=== PATIENT | female | born 1985 | race Caucasian/White ===

== ENCOUNTER 2016-05-26 18:50 | Emergency (ER) | payer OTHER ==
[~2016-05-26] VITALS: Ht 170.2 cm; Wt 115.0 kg
[~2016-05-26 18:50] MED LIST: ALBU1AER9 INH; CHOL1TAB42 PO; FLUT0.15; LORA10TA44 PO; NAPR220T40 PO; SYN75 PO
[2016-05-26 18:54] VITALS: TEMP 36.7; Ht 170.2 cm; Wt 115.0 kg
[2016-05-26] MEDS ORDERED: LORAZEPAM 2 MG/ML 1 ML VIAL IV STA (19:20)
--- NOTE | 2016-05-26 19:22 | EMERGENCY ROOM VISIT NOTE ---
History Report prepared by Ryan: Asa Bustamante Under the Supervision of: Dr. Tigre Carnes D.O. First contact with patient: 18:58 Chief Complaint: ANXIETY Stated Complaint: ANXIETY ATTACK History of Present Illness The patient is a 30 year old female who presents to the Emergency Room with complaints of worsening anxiety beginning thirteen hours prior to arrival. She currently rates her discomfort as an 8/10 in severity. The patient associates shortness of breath and chest tightness with today's symptoms. She states she woke up this morning at 0600 with a warm feeling, shortness of breath, and chest tightness. The patient notes her symptoms worsened an hour and a half ago. She states she took 1 mg Ativan at 1400 and 1800 without relief. The patient notes she has a history of anxiety and depression. She states her last anxiety attack was over a year ago, and the symptoms today feel similar to her previous episode. The patient notes her medications have been changed recently. She states she has been in bed the past week due to her depression. She notes she has a history of exercise induced asthma. The patient states her last known menstrual period was April 29 which was normal. She denies suicidal ideation. Source of History: patient Onset: thirteen hours [employer] Position: other (global) Symptom Intensity: 8/10 Quality: other (anxiety) Timing: worsening Associated Symptoms: + SOB, + chest pain (tightness) Review of Systems See HPI for pertinent positives & negatives. A total of 10 systems reviewed and were otherwise negative. Past Medical & Surgical Medical Problems: (1) Anxiety State Nos (2) Asthma, Unspecified (3) Hypothyroidism Nos (4) Reflux Esophagitis Surgical Problems: (1) Sterilization Family History Cancer Diabetes mellitus Heart disease Hypertension Kidney disease Social History Smoking Status: Former Smoker Alcohol Use: occasionally Drug Use: none Marital Status: Housing Status: lives with family Occupation Status: employed Current/Historical Medications Scheduled Azelastine Hcl (Astelin Nasal [place]), 2 SPRAYS NA BID Cholecalciferol (Vitamin D), 10,000 UNITS PO QAM Fluticasone Propionate (Nasal) (Flonase Allergy Relief), 2 SPRAYS NA BID Levothyroxine Sodium (Synthroid), 75 MCG PO QAM Venlafaxine Hcl (Effexor), 75 MG PO BID Scheduled PRN Albuterol (Proair Hfa), 2 PUFFS INH Q4 PRN for Wheezing Lorazepam (Lorazepam), 1 MG PO Q8H PRN for Anxiety Allergies Coded Allergies: Penicillins (Verified Allergy, Intermediate, rash, 05/26/16) Latex1 -Allergic Contact Dermititis (Verified Allergy, Mild, RASH, 05/26/16) Azithromycin (Verified Allergy, Unknown, RASH, 05/26/16) Physical Exam Vital Signs Date Time Temp Pulse Resp B/P Pulse Ox O2 Delivery O2 Flow Rate FiO2 05/26/16 21:38 86 16 124/66 100 05/26/16 21:20 86 16 124/66 100 Room Air 05/26/16 18:54 36.7 103 30 135/83 99 Room Air Physical Exam CONSTITUTIONAL/VITAL SIGNS: Reviewed / noted above. GENERAL: Non-toxic in appearance. INTEGUMENTARY: Warm, dry, and [place]. HEAD: Normocephalic. EYES: without scleral icterus or trauma. ENT/OROPHARYNX: clear and moist. LYMPHADENOPATHY/NECK: Is supple without lymphadenopathy or meningismus. RESPIRATORY: Tachypneic with short, shallow, rapid breaths with some sobbing and crying. CARDIOVASCULAR: Regular rate and rhythm. GI/ABDOMEN: Soft and nontender. No organomegaly or pulsatile mass. No rebound or guarding. Normal bowel sounds. EXTREMITIES: Warm and well perfused. BACK: No CVA tenderness. NEUROLOGICAL: Intact without focal deficits. PSYCHIATRIC: Appears anxious. MUSCULOSKELETAL: Normally developed with good muscle tone. Medical Decision & Procedures ER Provider Diagnostic Interpretation: X ray results and stated below per my interpretation and radiology interpretation. CHEST ONE VIEW PORTABLE HISTORY: Evaluate Fever/Sepsis COMPARISON: Chest 03/16/2015. FINDINGS: The lungs are clear. Cardiac silhouette is normal in size. No pleural effusions. No pneumothorax. IMPRESSION: No acute process. Electronically signed by: Jv De La Cruz M.D. 05/26/2016 8:04 PM Dictated Date/Time: 05/26/2016 8:03 PM Laboratory Results 05/26/16 20:00 Red Blood Count 5.27, Mean Corpuscular Volume 84.6, Mean Corpuscular Hemoglobin 29.6, Mean Corpuscular Hemoglobin Concent 35.0, Mean Platelet Volume 10.2, Neutrophils (%) (Auto) 59.4, Lymphocytes (%) (Auto) 32.1, Monocytes (%) (Auto) 7.0, Eosinophils (%) (Auto) 0.8, Basophils (%) (Auto) 0.5, Neutrophils # (Auto) 6.20, Lymphocytes # (Auto) 3.34, Monocytes # (Auto) 0.73, Eosinophils # (Auto) 0.08, Basophils # (Auto) 0.05 05/26/16 20:00 Test 05/26/16 19:50 05/26/16 20:00 Urine Opiates Screen NEG (NEG) Urine Methadone, Qualitative NEG (NEG) Urine Barbiturates NEG (NEG) Urine Phencyclidine (PCP) Level NEG (NEG) Ur Amphetamine/Methamphetamine NEG (NEG) MDMA (Ecstasy) Screen NEG (NEG) Urine Benzodiazepines Screen NEG (NEG) Urine Cocaine Metabolite NEG (NEG) Urine Marijuana (THC) NEG (NEG) White Blood Count 10.42 K/uL (4.8-10.8) Red Blood Count 5.27 M/uL (4.2-5.4) Hemoglobin 15.6 g/dL (12.0-16.0) Hematocrit 44.6 % (37-47) Mean Corpuscular Volume 84.6 fL (80-100) Mean Corpuscular Hemoglobin 29.6 pg (25-34) Mean Corpuscular Hemoglobin Concent 35.0 g/dl (32-36) Platelet Count 227 K/uL (130-400) Mean Platelet Volume 10.2 fL (7.4-10.4) Neutrophils (%) (Auto) 59.4 % Lymphocytes (%) (Auto) 32.1 % Monocytes (%) (Auto) 7.0 % Eosinophils (%) (Auto) 0.8 % Basophils (%) (Auto) 0.5 % Neutrophils # (Auto) 6.20 K/uL (1.4-6.5) Lymphocytes # (Auto) 3.34 K/uL (1.2-3.4) Monocytes # (Auto) 0.73 K/uL (0.11-0.59) Eosinophils # (Auto) 0.08 K/uL (0-0.5) Basophils # (Auto) 0.05 K/uL (0-0.2) RDW Standard Deviation 38.5 fL (36.4-46.3) RDW Coefficient of Variation 12.6 % (11.5-14.5) Immature Granulocyte % (Auto) 0.2 % Immature Granulocyte # (Auto) 0.02 K/uL (0.00-0.02) Prothrombin Time 10.0 SECONDS (9.0-12.0) Prothromb Time International Ratio 0.9 (0.9-1.1) Activated Partial Thromboplast Time 27.5 SECONDS (21.0-31.0) Partial Thromboplastin Ratio 1.1 D-Dimer 430 ug/L FEU (0-500) Anion Gap 9.0 mmol/L (3-11) Est Creatinine Clear Calc Drug Dose 144.3 ml/min Estimated GFR () 123.7 Estimated GFR (Non- 106.8 BUN/Creatinine Ratio 18.0 (10-20) Calcium Level 9.0 mg/dl (8.5-10.1) Total Bilirubin 0.3 mg/dl (0.2-1) Aspartate Amino Transf (AST/SGOT) 20 U/L (15-37) Alanine Aminotransferase (ALT/SGPT) 39 U/L (12-78) Alkaline Phosphatase 136 U/L (45-117) Total Creatine Kinase 95 U/L (26-192) Creatine Kinase MB 0.6 ng/ml (0.5-3.6) Creatine Kinase MB Ratio 0.6 (0-3.0) Troponin I < 0.015 ng/ml (0-0.045) Total Protein 7.8 gm/dl (6.4-8.2) Albumin 4.3 gm/dl (3.4-5.0) Globulin 3.5 gm/dl (2.5-4.0) Albumin/Globulin Ratio 1.2 (0.9-2) Thyroid Stimulating Hormone (TSH) 4.610 uIu/ml (0.300-4.500) Chemistry Specimen Hemolysis Salicylates Level < 1.7 mg/dl (2.8-20) Acetaminophen Level < 2 ug/ml (10-30) Ethyl Alcohol mg/dL < 3.0 mg/dl (0-3) Laboratory results as stated above per my review. Medications Administered Medications (Trade) Dose Ordered Sig/Elena Route Start Time Stop Time Status Last Admin Dose Admin Lorazepam (Ativan Inj) 2 mg NOW STAT IV 05/26/16 19:20 05/26/16 19:23 DC 05/26/16 20:01 2 MG ECG Indication: SOB/dyspnea Rate (beats per minute): 95 Rhythm: sinus rhythm Findings: RBBB, no ectopy, other (no acute injury) ED Course 1905: Previous medical records were reviewed. The patient was evaluated in room A8. A complete history and physical examination was performed. 1919: Ordered Ativan Inj 2 mg IV. 2129: On reevaluation, the patient is doing well. I discussed the results and findings with the patient. She verbalized agreement of the treatment plan. The patient was discharged home. Medical Decision differential includes toxic ingestions, self-mutilation, suicidal ideation, suicide attempt, depression. This is a 30-year-old female who presents to the ED with a chief complaint of anxiety attack. The patient states that she has been anxious since about 6 AM this morning. She states that she had a hot feeling and felt short of breath and has some chest tightness. The patient states that her symptoms were worse around 5:30 PM. She took an Ativan sublingual around 2 PM and another around 6 PM. She states that it did not seem to help. She is tachypneic on exam and is anxious. Her respiratory rate was 30. She is not hypoxic or febrile. She denies any other significant symptoms. An EKG shows a sinus rhythm at a rate of 95 with a right bundle branch block. CBC is normal. D-dimer and troponin are negative. Complete metabolic panel is normal. A urine tox screen is normal. The patient was given 2 mg of IV Ativan. On reassessment, she is feeling much better. She is felt to be stable for discharge. She denies being homicidal or suicidal. Impression Primary Impression: Anxiety Scribe Attestation The scribe's documentation has been prepared under my direction and personally reviewed by me in its entirety. I confirm that the note above accurately reflects all work, treatment, procedures, and medical decision making performed by me. Departure Information Dispostion Home / Self-Care Referrals Rina Gautam D.O. (PCP) Forms HOME CARE DOCUMENTATION FORM, IMPORTANT VISIT INFORMATION Patient Instructions A Signature Page, Disorder Generalized Anxiety, My [facility] Additional Instructions Follow-up with your doctor for further care and evaluation in 1-2 days. Return to the emergency department for worsening or new symptoms or any concerns. You have been examined and treated today on an emergency basis only. This is not a substitute for, or an effort to provide, complete comprehensive medical care. It is impossible to recognize and treat all injuries or illnesses in a single emergency department visit. It is therefore important that you follow up closely with your doctor. Call as soon as possible for an appointment.
[2016-05-26] MEDS ORDERED: EFF75 PO (19:23)
[2016-05-26] MEDS ORDERED: ASTN (19:23)
[2016-05-26] MEDS ORDERED: ATV1 PO (19:23)
--- NOTE | 2016-05-26 20:05 | DIAGNOSTIC IMAGING REPORT ---
CHEST ONE VIEW PORTABLE HISTORY: Evaluate Fever/Sepsis COMPARISON: Chest 03/16/2015. FINDINGS: The lungs are clear. Cardiac silhouette is normal in size. No pleural effusions. No pneumothorax. IMPRESSION: No acute process. Electronically signed by: Jv De La Cruz M.D. 05/26/2016 8:04 PM Dictated Date/Time: 05/26/2016 8:03 PM
[2016-05-26 20:16] LABS: BASO % 0.5 %; BASO ABS # 0.05 K/uL (0-0.2); COMPLETE YES; EOS % 0.8 %; HEMATOCRIT 44.6 % (37-47); IG% 0.2 %; LYMPH % 32.1 %; LYMPH ABS # 3.34 K/uL (1.2-3.4); MEAN CELL VOLUME 84.6 fL (80-100); MEAN CORPUSCULAR HEMOGLOBIN 29.6 pg (25-34); MEAN PLATELET VOLUME 10.2 fL (7.4-10.4); NEUT % 59.4 %; PLATELET COUNT 227 K/uL (130-400); RED BLOOD COUNT 5.27 M/uL (4.2-5.4); WHITE BLOOD COUNT 10.42 K/uL (4.8-10.8)
[2016-05-26 20:33] LABS: INR 0.9 (0.9-1.1); PARTIAL THROMBOPLASTIN RATIO 1.1
[2016-05-26 20:40] LABS: BENZODIAZEPINE, URINE NEG (NEG); COCAINE,URINE NEG (NEG); PHENCYCLIDINE, URINE NEG (NEG)
[2016-05-26 20:40] LABS: ACETAMINOPHEN < 2 ug/ml (10-30)
[2016-05-26 20:41] LABS: ALT/SGPT 39 U/L (12-78); AST/SGOT 20 U/L (15-37); BLOOD UREA NITROGEN 14 mg/dl (7-18); CARBON DIOXIDE 25 mmol/L (21-32); CHLORIDE 108 mmol/L (98-107); CREATININE 0.76 mg/dl (0.60-1.20); GLUCOSE 78 mg/dl (70-99); POTASSIUM 3.5 mmol/L (3.5-5.1); SODIUM 142 mmol/L (136-145)
[2016-05-26 20:58] LABS: ALB/GLOB RATIO 1.2 (0.9-2); ALKALINE PHOSPHATASE 136 U/L (45-117); CKMB/CK RATIO 0.6 (0-3.0)
[2016-05-26 21:38] VITALS: BP 124/66; PULSE 86; O2SAT 100
== END 2016-05-26 21:39 | disposition home or self-care (01) ==
LOC: C.EDB 18:52 → C.EDA 21:39
DX: F41.9 Anxiety disorder, unspecified (principal); J45.909 Unspecified asthma, uncomplicated; E03.9 Hypothyroidism, unspecified; K21.0 Gastro-esophageal reflux disease with esophagitis; Z80.9 Family history of malignant neoplasm, unspecified; Z83.3 Family history of diabetes mellitus; Z82.49 Family history of ischemic heart disease and other diseases of the circulatory system; Z84.1 Family history of disorders of kidney and ureter; Z87.891 Personal history of nicotine dependence; Z79.899 Other long term (current) drug therapy

== ENCOUNTER 2016-12-04 10:29 | Emergency (ER) | payer OTHER ==
[~2016-12-04] VITALS: Ht 170.2 cm; Wt 130.8 kg
[~2016-12-04 10:29] MED LIST changes: +ASTN; +ATV1 PO; +EFF75 PO; -LORA10TA44 PO; -NAPR220T40 PO
[2016-12-04 10:33] VITALS: TEMP 37; Ht 170.2 cm; Wt 130.8 kg
[2016-12-04] MEDS ORDERED: MELA1TAB5 PO (10:56)
[2016-12-04] MEDS ORDERED: HYDR-3126 PO (10:56)
[2016-12-04] MEDS ORDERED: VNTHFA/IN INH (10:56)
[2016-12-04] MEDS ORDERED: METH1TAB18 PO (10:56)
--- NOTE | 2016-12-04 11:11 | DIAGNOSTIC IMAGING REPORT ---
CHEST ONE VIEW PORTABLE HISTORY: 31 years Female with acute chest pain and shortness of breath COMPARISON: Chest radiograph 05/26/2016 TECHNIQUE: Portable upright AP view of the chest FINDINGS: Cardiac silhouette is within normal limits. No pneumothorax, pleural effusion, focal airspace consolidation or overt pulmonary edema. Patient obesity is noted. Bones are grossly intact. IMPRESSION: No acute cardiopulmonary process. The above report was generated using voice recognition software. It may contain grammatical, syntax or spelling errors. Electronically signed by: Chris Gross M.D. 12/04/2016 11:09 AM Dictated Date/Time: 12/04/2016 11:09 AM
[2016-12-04 11:22] LABS: HEMATOCRIT 44.6 % (37-47); MEAN CELL VOLUME 84.3 fL (80-100); MEAN CORPUSCULAR HEMOGLOBIN 28.7 pg (25-34); MEAN CORPUSCULAR HGB CONC 34.1 g/dl (32-36); MEAN PLATELET VOLUME 9.6 fL (7.4-10.4); PLATELET COUNT 221 K/uL (130-400); RED BLOOD COUNT 5.29 M/uL (4.2-5.4); WHITE BLOOD COUNT 4.77 K/uL (4.8-10.8)
[2016-12-04 11:30] LABS: PARTIAL THROMBOPLASTIN RATIO 1.1; PROTHROMBIN TIME (PATIENT) 10.4 SECONDS (9.0-12.0)
[2016-12-04 11:44] LABS: BUN/CREATININE RATIO 14.1 (10-20); CALCIUM 8.9 mg/dl (8.5-10.1); CREATININE 0.81 mg/dl (0.60-1.20)
[2016-12-04 11:49] LABS: ALB/GLOB RATIO 1.1 (0.9-2); CKMB/CK RATIO 0.8 (0-3.0)
[2016-12-04 12:43] LABS: ALKALINE PHOSPHATASE 108 U/L (45-117); ALT/SGPT 53 U/L (12-78); AST/SGOT 30 U/L (15-37)
[2016-12-04 13:50] VITALS: BP 155/91; O2SAT 98
[2016-12-04 13:52] VITALS: PULSE 98
--- NOTE | 2016-12-04 20:38 | EMERGENCY ROOM VISIT NOTE ---
History First contact with patient: 11:01 Chief Complaint: CHEST PAIN Stated Complaint: HIGH BP/CHEST PRESSURE/LEFT ARM PINCHING Nursing Triage Summary: Pt seen at PCP yesterday, bp was elevated. Seen initially for swelling in ankle. Last night developed left sided chest pain and pain into left arm described as pinching. Tight feeling when taking a deep breath, "like one of my children are sitting on my chest." Seen at [facility] to have bp rechecked, had an EKG done but was not told results. History of Present Illness The patient is a 31 year old female who presents to the Emergency Room with complaints of bilateral lower extremity swelling, elevated blood pressure, left- sided chest pain and left upper extremity pain/pinching sensation. The patient reports that she was seen yesterday afternoon by Dr. Green in the clinic. She was found to have elevated blood pressures and peripheral edema. Patient was instructed to return to the office this morning for repeat blood pressure checks. The patient reports that she was sitting on the couch watching television last night, she developed left-sided chest pressure and left arm extremity pain with a pinching sensation in her forearm. The patient reports that it felt like her child was sitting on her chest. He denied any nausea or diaphoresis. The patient did not notice any pain radiating into the neck. She has seen a chiropractor in the past for her neck as well. She denies any other recent shortness of breath, cough, fevers or chills. When the patient was back to her PCPs office this morning and told them about her chest pain, she was sent to emergency department for further evaluation. The patient believes that her blood pressure was 127/97. An ECG was performed but they did not tell her if it was normal or abnormal. The patient currently rates her discomfort a 5 out of 10. She has not noticed any worsening pain with exertion. She denies any personal history of heart disease, but does report a family history of coronary artery disease with her father having an myocardial infarction at the age of 45. Her father also has a history of pulmonary emboli. The patient denies any history of clotting disorders, DVT or pulmonary emboli. The patient rated her discomfort a 3 out of 10 on my exam. Review of Systems HEENT: Denies dizziness, visual problems, hearing loss, tinnitus. Denies difficulty swallowing or oral lesions. PULMONARY: Denies cough, shortness of breath, sputum production or hemoptysis. CARDIOVASCULAR: See history of present illness, otherwise denies palpitations or dyspnea on exertion. GASTROINTESTINAL: Denies diarrhea, constipation, nausea, vomiting, or abdominal pain. GENITOURINARY: Denies dysuria, frequency, urgency or nocturia. NEUROLOGIC: Denies history of epilepsy, CVA, TIA or chronic headaches. MUSCULOSKELETAL: Denies history of joint tenderness/swelling. SKIN: Denies rashes or lesions. PSYCHIATRIC: History of anxiety. ENDOCRINE: Denies history of diabetes. Reports history of hypothyroidism. Past Medical/Surgical History Medical Problems: (1) Anxiety State Nos (2) Asthma, Unspecified (3) Hypothyroidism Nos (4) Reflux Esophagitis Surgical Problems: (1) Sterilization Family History Cancer Diabetes mellitus Heart disease Hypertension Kidney disease Social History Smoking Status: Former Smoker Alcohol Use: occasionally Drug Use: none Marital Status: Housing Status: lives with family Occupation Status: employed Current/Historical Medications Scheduled Azelastine Hcl (Astelin Nasal [place]), 2 SPRAYS NA BID Fluticasone Propionate (Nasal) (Flonase Allergy Relief), 2 SPRAYS NA BID Hydroxyzine Hcl (Atarax), 50 MG PO TID Levothyroxine Sodium (Synthroid), 75 MCG PO QAM Methylphenidate Hcl (Methylphenidate Hcl Er), 36 MG PO DAILY Scheduled PRN Albuterol Hfa (Ventolin Hfa), 2 PUFFS INH Q6H PRN for Shortness of Breath Melatonin (Kp Melatonin), 1 TAB PO HS PRN for Sleep Physical Exam Vital Signs Date Time Temp Pulse Resp B/P (MAP) Pulse Ox O2 Delivery O2 Flow Rate FiO2 12/04/16 13:52 98 12/04/16 13:50 74 18 155/91 98 Room Air 12/04/16 12:15 77 18 149/95 97 Room Air 12/04/16 11:09 99 Room Air 12/04/16 10:58 84 12/04/16 10:33 37.0 88 16 165/95 100 Room Air Physical Exam CONSTITUTIONAL: Morbidly obese female, alert and oriented X 3 with positive affect. Patient does not appear in any acute distress. HEENT: Normocephalic, atraumatic. Pupils equal, round and reactive. Ears and nares are clear. No scleral icterus or conjunctival injection/pallor. NECK: Full active range of motion without discomfort. No JVD or carotid bruits. RESPIRATORY: Clear to auscultation bilaterally with no wheezing, crackles, rhonchi or stridor. She does not appear dyspneic. CARDIOVASCULAR: Regular rate and rhythm with no murmurs, rubs or gallops. GASTROINTESTINAL: Bowel sounds present in all quadrants. Abdomen is soft and nontender to palpation. MUSCULOSKELETAL: Full range of motion of all joints without discomfort. The patient has no tenderness to palpation over the costochondral joints or anterior chest wall. The patient also has no worsening pain with range of motion of the left shoulder. INTEGUMENTARY: No rash or other significant dermatologic conditions noted. HEMATOLOGIC: No ecchymosis or petechiae noted. NEUROLOGIC: No focal neurologic deficits noted. Medical Decision & Procedures ER Provider Diagnostic Interpretation: My interpretation of an ECG shows a normal sinus rhythm of [address] elevation or other conduction abnormalities. My interpretation of a portable chest x-ray does not show any consolidations, pneumothorax or obvious cardiac prominence. Radiologist report is as follows: CHEST ONE VIEW PORTABLE HISTORY: 31 years Female with acute chest pain and shortness of breath COMPARISON: Chest radiograph 05/26/2016 TECHNIQUE: Portable upright AP view of the chest FINDINGS: Cardiac silhouette is within normal limits. No pneumothorax, pleural effusion, focal airspace consolidation or overt pulmonary edema. Patient obesity is noted. Bones are grossly intact. IMPRESSION: No acute cardiopulmonary process. Laboratory Results 12/04/16 11:00 12/04/16 11:00 Test 12/04/16 11:00 12/04/16 11:07 Red Blood Count 5.29 M/uL (4.2-5.4) Mean Corpuscular Volume 84.3 fL (80-100) Mean Corpuscular Hemoglobin 28.7 pg (25-34) Mean Corpuscular Hemoglobin Concent 34.1 g/dl (32-36) RDW Standard Deviation 39.5 fL (36.4-46.3) RDW Coefficient of Variation 12.9 % (11.5-14.5) Mean Platelet Volume 9.6 fL (7.4-10.4) Prothrombin Time 10.4 SECONDS (9.0-12.0) Prothromb Time International Ratio 1.0 (0.9-1.1) Activated Partial Thromboplast Time 27.5 SECONDS (21.0-31.0) Partial Thromboplastin Ratio 1.1 D-Dimer 490 ug/L FEU (0-500) Anion Gap 5.0 mmol/L (3-11) Est Creatinine Clear Calc Drug Dose 144.5 ml/min Estimated GFR () 113.8 Estimated GFR (Non- 98.1 BUN/Creatinine Ratio 14.1 (10-20) Calcium Level 8.9 mg/dl (8.5-10.1) Total Bilirubin 0.3 mg/dl (0.2-1) Direct Bilirubin < 0.1 mg/dl (0-0.2) Aspartate Amino Transf (AST/SGOT) 30 U/L (15-37) Alanine Aminotransferase (ALT/SGPT) 53 U/L (12-78) Alkaline Phosphatase 108 U/L (45-117) Total Creatine Kinase 78 U/L (26-192) Creatine Kinase MB 0.6 ng/ml (0.5-3.6) Creatine Kinase MB Ratio 0.8 (0-3.0) Pro-B-Type Natriuretic Peptide 40 pg/ml (0-450) Total Protein 7.2 gm/dl (6.4-8.2) Albumin 3.9 gm/dl (3.4-5.0) Globulin 3.5 gm/dl (2.5-4.0) Albumin/Globulin Ratio 1.1 (0.9-2) Lipase 125 U/L (73-393) Thyroid Stimulating Hormone (TSH) 2.870 uIu/ml (0.300-4.500) Bedside Troponin I < 0.030 ng/ml (0-0.045) The above labs were reviewed and were grossly normal. BNP, troponin and d- dimer are normal. TSH is normal. ED Course Patient history and physical exam were performed. Nurse's notes were reviewed. Vital signs were reviewed, showing an elevated blood pressure 165/95 in triage. Another blood pressure recheck approximately 2-1/2 hours later was 149/ 95. IV access was established, and labs were drawn. ECG and portable chest x- ray were normal. Labs were reviewed to show a normal d-dimer, troponin and BNP. Remaining labs were also reviewed. The case was then discussed with Dr. Palmer, who reviewed the patient's office notes and recommended that the patient be started on triamterene/ hydrochlorothiazide. He will ascribe this medication for the patient. His office will also contact the patient for reevaluation tomorrow and cardiology referral with stress test. This information was relayed back to the patient. She was instructed to return to the emergency department for any progressively worsening chest pain, diaphoresis, shortness of breath or other concerning symptoms. The patient was happy with plan of care, voiced understanding of all discharge instructions, and denied any significant discomfort at the time of discharge. The case was also discussed with Dr. Layne, ED attending physician, who agrees with workup and plan of care. Medical Decision Patient presents to the emergency department with complaint of left sided chest pressure and left arm pain. Her workup today is not suggestive of myocardial infarction, pneumonia, pneumothorax or pulmonary embolus. The patient is also euthyroid. She is not anemic. She has no leukocytosis or fever to suggest infection. The patient is hypertensive, and her PCP will be prescribing antihypertensives, and will also secure cardiology reevaluation. At this point I do feel that the patient is safe for outpatient management, with instructions to return for any worsening symptoms. Medication Reconcilliation Current Medication List: was personally reviewed by me Blood Pressure Screening Patient's blood pressure: Elevated blood pressure Blood pressure disposition: Referred to PCP Impression Primary Impression: Left sided chest pain Additional Impression: Hypertension Departure Information Referrals Sarah Sanchez D.O. (PCP) Patient Instructions My [facility] Problem Qualifiers Additional Impression: Hypertension Hypertension type: essential hypertension Qualified Codes: I10 - Essential ( primary) hypertension
== END 2016-12-04 14:20 | disposition home or self-care (01) ==
LOC: C.EDB 10:31 → C.EDC 14:20
DX: R07.9 Chest pain, unspecified (principal); I10 Essential (primary) hypertension; R60.0 Localized edema; F41.9 Anxiety disorder, unspecified; J45.909 Unspecified asthma, uncomplicated; E03.9 Hypothyroidism, unspecified; K21.0 Gastro-esophageal reflux disease with esophagitis; Z87.891 Personal history of nicotine dependence; Z83.3 Family history of diabetes mellitus; Z83.2 Family history of diseases of the blood and blood-forming organs and certain disorders involving the immune mechanism; Z82.49 Family history of ischemic heart disease and other diseases of the circulatory system

== ENCOUNTER 2022-06-21 23:22 | Inpatient (IN) ==
[2022-06-21] MEDS ORDERED: SODIUM CHLORIDE 0.9% 1000ML 500 ML IV ONE (23:39)
[2022-06-21] MEDS ORDERED: MoRPHine SULFATE 4 MG/ML 1 ML CARP\\VIAL IV STA (23:40)
[2022-06-21] MEDS ORDERED: ONDANSETRON INJ 2 MG/ML 2 ML VIAL IV STA (23:40)
--- NOTE | 2022-06-21 23:41 | Emergency Department Note ---
History of Present Illness General Chief complaint: Back Injury/Pain Stated complaint: LOWER BACK PAIN Time Seen by Provider: 06/21/22 23:30 History of Present Illness Maximum Pain Intensity: 9 This is a 36-year-old female with a history of gastric bypass the presents to the emergency department via private vehicle with complaints of "low back pain". The patient notes that she has been experiencing right flank pain that radiates from her right side of the back to the abdomen since around 2021. Over the past month now she has been experiencing ongoing discomfort. She has been to see her PCP for this and has also had an ultrasound. She notes that it confirmed there is a kidney stone in the right kidney. She denies any fevers or chills. She does feel nauseated at times. No vomiting. No dysuria. She denies any visible blood in the urine. Patient notes that the pain has been intermittent. Current pain 9/10. Home Medications Medication Instructions Recorded Confirmed Type azelastine 137 mcg (0.1 %) nasal 1 spray intranasal BID PRN Nasal 04/30/21 06/22/22 History spray aerosol Congestion brexpiprazole 1 mg tablet (Rexulti) 1 mg PO HS 04/30/21 06/22/22 History fluticasone propionate 50 1 spray intranasal BID PRN 04/30/21 06/22/22 History mcg/actuation nasal allergies spray,suspension hydroxyzine HCl 50 mg tablet 50 mg PO HS 04/30/21 06/22/22 History levothyroxine 112 mcg capsule 112 mcg PO QAM 04/30/21 06/22/22 History multivitamin 1 tab PO DAILY 04/30/21 06/22/22 History topiramate 50 mg tablet 50 mg PO HS 04/30/21 06/22/22 History vortioxetine 20 mg tablet 20 mg PO HS 04/30/21 06/22/22 History (Trintellix) bupropion HCl 75 mg tablet 150 mg PO BID 06/22/22 06/22/22 History calcium cit 250 mg-mag 40 mg-D3 2 tab PO TID 06/22/22 06/22/22 History 125 unit-zinc 3.75 mg-molecular spectroscopist-salvador tablet (Calcium Citrate Plus) cholecalciferol (vitamin D3) 50 50 mcg PO DAILY 06/22/22 06/22/22 History mcg (2,000 unit) tablet (Vitamin D3) lisdexamfetamine 60 mg capsule 60 mg PO QAM 06/22/22 06/22/22 History (Vyvanse) omeprazole 20 mg capsule,delayed 20 mg PO QAM 06/22/22 06/22/22 History release pediatric [id number] 1 tab PO BID 06/22/22 06/22/22 History tamsulosin 0.4 mg capsule 0.4 mg PO QAM 06/22/22 06/22/22 History vitamin A 2,400 mcg capsule 2,400 mcg PO DAILY 06/22/22 06/22/22 History Allergies Allergy/AdvReac Type Severity Reaction Status Date / Time azithromycin Allergy Mild Rash Verified 06/22/22 02:34 latex Allergy Mild RASH Verified 06/22/22 02:34 nickel Allergy Mild RASH/SKIN Verified 06/22/22 02:34 IRRITATION Penicillins Allergy Mild rash Verified 06/22/22 02:34 Past Med/Surg History Medical History ADD (attention deficit disorder) Anxiety and depression Exercise-induced asthma HAS NOT USED INHALER FOR <1 YEAR GERD (gastroesophageal reflux disease) "SEVERE" Hx of migraines Hypertension Hypothyroidism Temporomandibular joint disorder Surgical History History of anesthesia reaction TROUBLE STAYING AWAKE WITH WISDOM TEETH REMOVAL History of bilateral tubal ligation History of esophagogastroduodenoscopy (EGD) History of tonsillectomy and adenoidectomy [place] teeth removed Family History Father Family history of diabetes mellitus Other No family history of adverse response to anesthesia Social History Smoking Status: Never smoker Second Hand Exposure: No; Do You Dip or Chew Tobacco: No; Hx Alcohol Use: Yes Alcohol type: other Hx Substance Use: No Preferred Language: Sammarinese Communication Ability: Effective Fine Arts Teacher Required: No Beliefs That Will Affect Care: None Current Living Situation: Spouse Current Living Situation Comment: AND 2 CHILDREN Feels Safe at Home: Yes Safety Concerns: Feels Safe At This Time Assistive Devices: Glasses Review of Systems A total of 10 systems reviewed and were otherwise negative Physical Exam Vital Signs Vital Signs - 24 hr 06/21/22 23:25 06/22/22 00:19 06/22/22 02:09 Temperature 36.1 C L Temperature Source Temporal Artery Scan Pulse Rate 81 Pulse Rate [Finger] 58 L 66 Respiratory Rate 16 18 18 Respiratory Effort / Characteristics Non-Labored Spontaneous Non-Labored Spontaneous Respiratory Depth Normal Normal Blood Pressure 146/94 H Blood Pressure [Right Arm] 152/91 H 156/94 H Blood Pressure Mean 111 Blood Pressure Mean [Right Arm] 111 114 Blood Pressure Position [Right Arm] Sitting Sitting Pulse Oximetry 98 97 98 Oxygen Delivery Method Room Air Room Air Room Air Sepsis Recent Fever Within 48 Hours No Sepsis New/Unexplained Change in Mental Status No Sepsis Action Taken by Nursing No Action Required VITAL SIGNS - Vital signs and nursing notes were reviewed. Mildly hypertensive, otherwise stable. GENERAL -36-year-old female appearing her stated age who is in no acute distress. Communicates well with provider and answers questions appropriately. SKIN - Without rashes. No meningeal or petechial rash. HEAD - NC/AT. EYES - Sclera anicteric. LUNGS - Chest wall symmetric without accessory muscle use, intercostals retractions, or central cyanosis. Normal vesicular breath sounds CTA B/L. No wheezes, rales, or rhonchi appreciated. CARDIAC - RRR with S1/S2. No murmur, rubs, or gallops appreciated. ABDOMEN - Abdominal contour normal without pulsations or visible masses. BS normoactive all four quadrants. No tenderness, palpable masses, hepatosplenomegaly, or ascites noted. MUSCULOSKELETALthere is reproducible tenderness to palpation overlying the right flank region. EXTREMITIES - No clubbing or peripheral cyanosis. PSYCH - A&O, and cooperates fully with examiner. Pt is very pleasant and i nteracts well with examiner. Course Administered Medications Bupropion HCl (Bupropion Hcl 75 Mg Tablet) 150 mg PO BID NEDRA Stop: 07/22/22 08:59 Last Admin: 06/22/22 08:06 Dose: Not Given Documented By: ARETHA Hydromorphone HCl (Hydromorphone Inj 0.5 Mg/0.5 Ml Syr) 0.5 mg IV Q3H PRN PRN Reason: Pain Stop: 07/06/22 03:55 Last Admin: 06/22/22 11:11 Dose: 0.5 mg Documented By: Admin: 06/22/22 07:33 Dose: 0.5 mg Documented By: Admin: 06/22/22 04:24 Dose: 0.5 mg Documented By: MICHAEL Sodium Chloride (Nss 1000ml) 1,000 mls @ 80 mls/hr IV .[id number] [facility] Stop: 06/23/22 09:44 Last Admin: 06/22/22 10:07 Dose: 80 mls/hr Documented By: ARETHA Levothyroxine Sodium (Levothyroxine Sodium 112 Mcg Tablet) 112 mcg PO DAILYBB NEDRA Stop: 07/22/22 06:29 Last Admin: 06/22/22 06:29 Dose: 112 mcg Documented By: MICHAEL Miscellaneous (Brexpiprazole [Rexulti] - Order Awaiting Action) 1 each N/A QS [facility] Stop: 07/22/22 07:59 Last Admin: 06/22/22 15:13 Dose: Not Given Documented By: Admin: 06/22/22 08:05 Dose: Not Given Documented By: ARETHA Liuaneous (Lisdexamfetamine [Vyvanse] 60 Mg - Order Awaiting Action) 1 each N/A [facility] Stop: 07/22/22 07:59 Last Admin: 06/22/22 15:13 Dose: Not Given Documented By: Admin: 06/22/22 08:05 Dose: Not Given Documented By: ARETHA Mariecellaneous (Vortioxetine [Trintellix] 20 Mg - Order Awaiting Action) 1 each N/A [facility] Stop: 07/22/22 07:59 Last Admin: 06/22/22 15:13 Dose: Not Given Documented By: Admin: 06/22/22 08:06 Dose: Not Given Documented By: ARETHA Multivitamins/Folic Acid/Vitamin C (Multivitamin Chewable Tab) [facility] [place] Stop: 07/22/22 08:59 Last Admin: 06/22/22 08:06 Dose: Not Given Documented By: ARETHA Pantoprazole Sodium (Pantoprazole 40 Mg Tab) 40 mg PO QAM [facility] Stop: 07/22/22 08:59 Last Admin: 06/22/22 08:06 Dose: Not Given Documented By: ARETHA Tamsulosin HCl (Tamsulosin Hcl 0.4 Mg Cap) 0.4 mg PO QAM [facility] Stop: 07/22/22 08:59 Last Admin: 06/22/22 08:06 Dose: Not Given Documented By: ARETHA Discontinued Medications Diatrizoate Meglumine (Diatrizoate Meglumine 30% 100ml Vial) 100 ml INSTIL ONCE ONE Stop: 06/22/22 12:51 Last Admin: 06/22/22 12:58 Dose: 5 ml Documented By: [id number] Sodium Chloride (Nss 1000ml) 500 mls @ 500 mls/hr IV .Q1H ONE Stop: 06/22/22 00:38 Last Infusion: 06/22/22 03:31 Dose: 0 mls/hr Documented By: Admin: 06/21/22 23:47 Dose: 500 mls/hr Documented By: NGUYEN Ceftriaxone Sodium (Rocephin) 2,000 mg in 70 mls @ 140 mls/hr IV NOW STA Stop: 06/22/22 02:25 Last Infusion: 06/22/22 02:45 Dose: 0 mls/hr Documented By: Admin: 06/22/22 02:02 Dose: 140 mls/hr Documented By: NGUYEN Ketorolac Tromethamine (Ketorolac 30 Mg/Ml Vial) Confirm Administered Dose 60 mg .ROUTE .STK-MED ONE Stop: 06/22/22 13:09 Last Admin: 06/22/22 13:50 Dose: Not Given Documented By: ARETHA Morphine Sulfate (Morphine Sulfate 4 Mg/Ml 1 Ml Carp\\Vial) 4 mg IV NOW STA Stop: 06/21/22 23:41 Last Admin: 06/21/22 23:47 Dose: 4 mg Documented By: NGUYEN Morphine Sulfate (Morphine Sulfate 4 Mg/Ml 1 Ml Carp\\Vial) 4 mg IV NOW STA Stop: 06/22/22 01:57 Last Admin: 06/22/22 02:02 Dose: 4 mg Documented By: NGUYEN Ondansetron HCl (Ondansetron Inj 2 Mg/Ml 2 Ml Vial) 4 mg IV NOW STA Stop: 06/21/22 23:41 Last Admin: 06/21/22 23:47 Dose: 4 mg Documented By: NGUYEN Medical Decision Making Laboratory Data 06/21/22 23:45 06/21/22 23:45 Lab Results 06/21/22 06/21/2206/21/23 Range/Units 23:40 23:40 23:45 WBC 8.94 (4.8-10.8) K/ul RBC 4.93 (4.20-5.40) M/uL Hgb 14.5 (12.0-16.0) g/dl Hct 42.3 (37.0-47.0) % MCV 85.8 (80.0-100.0) fL MCH 29.4 (25.0-34.0) pg MCHC 34.3 (32.0-36.0) g/dL RDW Std Deviation 38.8 (36.4-46.3) fL RDW Coeff of Bebe 12.4 (11.5-14.5) % Plt Count 293 (130-400) K/uL MPV 10.2 (9.4-12.4) fL Immature Gran % (Auto) 0.1 % Neut % (Auto) 59.9 % Lymph % (Auto) 31.8 % Tucker % (Auto) 6.7 % Eos % (Auto) 1.3 % Baso % (Auto) 0.2 % Neut # (Auto) 5.35 (1.40-6.50) K/uL Lymph # (Auto) 2.84 (1.2-3.4) K/uL Tucker # (Auto) 0.60 H (0.11-0.59) K/uL Eos # (Auto) 0.12 (0-0.50) K/uL Baso # (Auto) 0.02 (0-0.2) K/uL Immature Gran # (Auto) 0.01 (0.01-0.20) K/uL Sodium (136-145) mmol/L Potassium (3.5-5.1) mmol/L Chloride (98-107) mmol/L Carbon Dioxide (21-32) mmol/L Anion Gap (3-11) BUN (6-23) mg/dl Creatinine (0.6-1.2) mg/dl Est Cr Clr Drug Dosing ml/min Est GFR ( Amer) ml/min Est GFR (Non-Af Amer) ml/min BUN/Creatinine Ratio (10-20) Glucose (70-99(Fasting)) mg/dl Calcium (8.5-10.1) mg/dl Total Bilirubin (0.2-1.0) mg/dl AST (13-39) U/L ALT (7-52) U/L Alkaline Phosphatase (34-104) U/L Total Protein (6.0-8.3) gm/dl Albumin (3.4-5.0) gm/dl Globulin (2.5-4.0) gm/dl Albumin/Globulin Ratio (0.9-2) Urine Color Dark Yellow Urine Appearance Turbid A (Clear) Urine pH 5.5 (4.5-7.5) Ur Specific [place] 1.027 (1.000-1.030) Urine Protein 3+ H (Negative) Urine Glucose (UA) Negative (Negative) Urine Ketones 1+ H (Negative) Urine Blood 3+ H (Negative) Urine Nitrite Negative (Negative) Urine Bilirubin 1+ H (Negative) Urine Urobilinogen Negative (Negative) Ur Leukocyte Esterase 2+ H (Negative) Urine WBC (Auto) >30 H (0-5) /hpf Urine RBC (Auto) >30 H (0-4) /hpf U Hyaline Cast (Auto) 0 (0-5) /lpf U Epithel Cells (Auto) >30 H (0-5) /lpf Urine Bacteria (Auto) 2+ H (Negative) Urine Crystals Not Reportable Calcium Oxalate Crystal Present A (None Prsent) Urine Mucus Present A (None Prsent) Urine Yeast Not Reportable POC Ur Test NEG (NEG) SARS-CoV-2, RNA, NAAT (NEGATIVE) 06/21/22 06/22/22 Range/Units 23:45 01:42 WBC (4.8-10.8) K/ul RBC (4.20-5.40) M/uL Hgb (12.0-16.0) g/dl Hct (37.0-47.0) % MCV (80.0-100.0) fL MCH (25.0-34.0) pg MCHC (32.0-36.0) g/dL RDW Std Deviation (36.4-46.3) fL RDW Coeff of Bebe (11.5-14.5) % Plt Count (130-400) K/uL MPV (9.4-12.4) fL Immature Gran % (Auto) % Neut % (Auto) % Lymph % (Auto) % Tucker % (Auto) % Eos % (Auto) % Baso % (Auto) % Neut # (Auto) (1.40-6.50) K/uL Lymph # (Auto) (1.2-3.4) K/uL Tucker # (Auto) (0.11-0.59) K/uL Eos # (Auto) (0-0.50) K/uL Baso # (Auto) (0-0.2) K/uL Immature Gran # (Auto) (0.01-0.20) K/uL Sodium 137 (136-145) mmol/L Potassium 4.0 (3.5-5.1) mmol/L Chloride 107 (98-107) mmol/L Carbon Dioxide 24 (21-32) mmol/L Anion Gap 6 (3-11) BUN 16 (6-23) mg/dl Creatinine 0.73 (0.6-1.2) mg/dl Est Cr Clr Drug Dosing 131.5 ml/min Est GFR ( Amer) 124.5 ml/min Est GFR (Non-Af Amer) 107.5 ml/min BUN/Creatinine Ratio 21.9 H (10-20) Glucose 82 (70-99(Fasting)) mg/dl Calcium 9.5 (8.5-10.1) mg/dl Total Bilirubin 0.6 (0.2-1.0) mg/dl AST 21 (13-39) U/L ALT 38 (7-52) U/L Alkaline Phosphatase 159 H (34-104) U/L Total Protein 6.8 (6.0-8.3) gm/dl Albumin 4.5 (3.4-5.0) gm/dl Globulin 2.3 L (2.5-4.0) gm/dl Albumin/Globulin Ratio 2.0 (0.9-2) Urine Color Urine Appearance (Clear) Urine pH (4.5-7.5) Ur Specific [place] (1.000-1.030) Urine Protein (Negative) Urine Glucose (UA) (Negative) Urine Ketones (Negative) Urine Blood (Negative) Urine Nitrite (Negative) Urine Bilirubin (Negative) Urine Urobilinogen (Negative) Ur Leukocyte Esterase (Negative) Urine WBC (Auto) (0-5) /hpf Urine RBC (Auto) (0-4) /hpf U Hyaline Cast (Auto) (0-5) /lpf U Epithel Cells (Auto) (0-5) /lpf Urine Bacteria (Auto) (Negative) Urine Crystals Calcium Oxalate Crystal (None Prsent) Urine Mucus (None Prsent) Urine Yeast POC Ur Test (NEG) SARS-CoV-2, RNA, NAAT NEGATIVE (NEGATIVE) Imaging Data Radiologist's Impression: Abdomen/Pelvis CT 06/21/22 23:39 CT SCAN OF THE ABDOMEN AND PELVIS WITHOUT IV CONTRAST CLINICAL HISTORY: Right flank pain. COMPARISON STUDY: Abdominal CT dated 03/04/2011. TECHNIQUE: CT scan of the abdomen and pelvis is performed from the lung bases to the proximal femora. Images are reviewed in the axial, sagittal, and coronal planes. IV contrast was not administered for this examination. A dose lowering technique was utilized adhering to the principles of ALARA. CT DOSE: 1701.87 mGy.cm FINDINGS: Lung bases: The heart is normal in size and without pericardial effusion. The lung bases are clear. Liver: The unenhanced liver is normal in size, contour, and attenuation. There is no intrahepatic biliary ductal dilatation. Gallbladder: Unremarkable. Spleen: Normal in size and attenuation. Pancreas: Unremarkable. Adrenal glands: Unremarkable. Kidneys: The unenhanced kidneys are normal in size and without hydronephrosis. There is focal cerebral collecting system with a 1.8 cm stone in the right renal pelvis and mild surrounding infiltration. A 6 mm nonobstructing calculus is seen in the left lower pole. No ureteral stone is identified. There is no evidence of contour deforming renal mass lesion. Abdominal vasculature: The abdominal aorta is normal in course and caliber. Stomach and bowel: There is a small hiatal hernia. Postsurgical changes consistent with a Fabricio-en-Y gastric bypass procedure. There is no bowel obstruction. Mild/moderate fecal retention is seen throughout the colon. The appendix is well-visualized and normal. Peritoneum: There is no intraperitoneal free air or abdominal ascites. Lymphadenopathy: None. Pelvic viscera: The bladder is decompressed and grossly unremarkable. The uterus and adnexa are normal as visualized noting bilateral ovarian follicles. Postsurgical change is suggested involving the fallopian tubes. Skeletal structures: No lytic or blastic lesions are seen. IMPRESSION: 1. The kidneys are normal in size and without hydronephrosis. 2. There is fullness of the right renal collecting system with a 1.8 cm calculus in the right renal pelvis and mild surrounding infiltration. Correlate with clinical findings and urinalysis. 3. A small left calculus is also seen in the left lower pole. 4. There is no ureteral stone. 5. The patient is status post Fabricio-en-Y gastric bypass procedure. No bowel obstruction is seen. 6. Additional findings as above. ACT 112: Negative or not required by law. Electronically signed by: Juan M Palomino M.D. 06/22/2022 6:[address] ABDOMEN & PELVIS Without Contrast: Comparison: 03/04/2011 1.4 cm stone within the right renal pelvis with mild hydronephrosis and surround ing peripelvic fat stranding. 4 mm nonobstructing stone within the left kidney. Normal ureters. No bladder stones. Normal appendix. Fabricio-en-Y gastric bypass. Radiologist: Izabella Restrepo MD Study ready at 00:05 and initial results transmitted at 01:15 MDM Narrative Patient was seen and evaluated as above in room A12. Review was performed of triage nursing notes and vital signs. After obtaining a thorough history and physical examination the above work up was performed. Patient presents to us today for evaluation of right flank pain. She clinically appears well and nontoxic. She does note recent confirmation of a stone to the right kidney via ultrasound. Options of care were discussed with the patient. IV access was established. Labs were drawn. She was medicated with IV morphine for pain, IV Zofran for nausea, IV fluids. Benefit versus risk of CT imaging discussed with the patient and we through shared decision making elected to proceed with CT imaging of the abdomen/pelvis without contrast. Radiology report is as above. I did independently review the images. Patient has a rather large 1.4 cm stone within the right renal pelvis with mild hydronephrosis and surrounding peripelvic fat stranding. Labs reveal no leukocytosis or concerning anemia. No emergent metabolic disturbance. Urinalysis although does have evidence of contamination noting amount of epithelial cells is concerning for potential developing UTI. In the setting of a likely obstructing stone now with ongoing and worsening right flank pain IV antibiotics was added. Benefit versus risk of ceftriaxone discussed with the patient. Although she notes allergy to penicillin she is amenable to trying ceftriaxone. This was provided without any issue. No reaction noted. While here in the ED she did respond well to IV analgesia. At this time I do believe that further evaluation and management in the inpatient setting is warranted. Case discussed with hospitalist service. Please refer to further documentation regarding her stay. Noting patients good clinical appearance without fever or evidence of systemic infection I do believe that the patient is stable to await further evaluation by the inpatient service/urology during admission rather than having emergent procedure while in the ED. Case was discussed with the attending physician. In the evaluation and treatment of this patient the following differential diagnoses were entertained: UTI, pyelonephritis, obstructing stone, renal failure, among others Impression & Plan Right flank pain, Renal calculus, Hydronephrosis of right kidney Discharge Plan Visit Data Chief Complaint: Back Injury/Pain Stated Complaint: LOWER BACK PAIN ED Provider: Melissa Collier ED Midlevel Provider: Danny Suero Discharge Problem: Right flank pain, Renal calculus, Hydronephrosis of right kidney Patient Disposition: Admitted As Inpatient Discharge Instructions Interventions: ED Discharge Assessment Last Done: 06/22/22 03:41
[2022-06-21 23:56] LABS: Basophils # (auto) 0.02 K/uL (0-0.2); Basophils % (auto) 0.2 %; Eosinophils # (auto) 0.12 K/uL (0-0.50); Eosinophils % (auto) 1.3 %; Hematocrit (blood only) 42.3 % (37.0-47.0); Hemoglobin 14.5 g/dl (12.0-16.0); Immature Granulocytes # (auto) 0.01 K/uL (0.01-0.20); Immature Granulocytes % (auto) 0.1 %; Lymphocytes # (auto) 2.84 K/uL (1.2-3.4); Lymphocytes % (auto) 31.8 %; Mean Corpuscular Hemoglobin 29.4 pg (25.0-34.0); Mean Corpuscular Hgb Conc 34.3 g/dL (32.0-36.0); Mean Corpuscular Volume 85.8 fL (80.0-100.0); Mean Platelet Volume 10.2 fL (9.4-12.4); Monocytes % (auto) 6.7 %; Neutrophils # (auto) 5.35 K/uL (1.40-6.50); Neutrophils % (auto) 59.9 %; Platelet Count 293 K/uL (130-400); RDW Coefficient of Variation 12.4 % (11.5-14.5); RDW Standard Deviation 38.8 fL (36.4-46.3); Red Blood Count 4.93 M/uL (4.20-5.40); White Blood Count 8.94 K/ul (4.8-10.8)
[2022-06-22 00:03] LABS: Appearance Urine Turbid (Clear); Bacteria Urine Automated 2+ (Negative); Blood Urine 3+ (Negative); Color Urine Dark Yellow; Epithelial Cell Urine Auto >30 /lpf (0-5); Glucose Urine UA Negative (Negative); Ketones Urine 1+ (Negative); Leukocyte Esterase Urine 2+ (Negative); Nitrite Urine Negative (Negative); Protein Urine 3+ (Negative); Specific Gravity Urine 1.027 (1.000-1.030); Urobilinogen Urine Negative (Negative); WBC Urine Automated >30 /hpf (0-5); pH Urine 5.5 (4.5-7.5)
[2022-06-22 00:17] LABS: Bilirubin Urine 1+ (Negative)
[2022-06-22 00:17] LABS: Albumin Level 4.5 gm/dl (3.4-5.0); BUN Creatinine Ratio 21.9 (10-20); Bilirubin,Total 0.6 mg/dl (0.2-1.0); Calcium 9.5 mg/dl (8.5-10.1); Creatinine Clr Calc Pharmacy 131.5 ml/min; Est GFR (African American) 124.5 ml/min; Est GFR (Non-African American) 107.5 ml/min; Globulin 2.3 gm/dl (2.5-4.0); Total Protein 6.8 gm/dl (6.0-8.3)
[2022-06-22 01:25] LABS: Calcium Oxalate Crystals Urine Present (None Prsent); Cast Urine Automated 0 /lpf (0-5); Mucus Urine Present (None Prsent); RBC Urine Automated >30 /hpf (0-4)
[2022-06-22] MEDS ORDERED: cefTRIAXone SODIUM 2,000 MG/70 ML BAG IV STA (01:56)
[2022-06-22] MEDS ORDERED: MoRPHine SULFATE 4 MG/ML 1 ML CARP\\VIAL IV STA (01:56)
[2022-06-22] MEDS ORDERED: ONDANSETRON INJ 2 MG/ML 2 ML VIAL IV PRN ×2 (03:56→12:30)
[2022-06-22] MEDS ORDERED: FLUTICASONE PROPIONATE NA SPR 16 GM BTL PRN (03:56)
[2022-06-22] MEDS ORDERED: AZELASTINE HCL 0.1% NASAL 200 SPRAYS/27,400 MCG BTL PRN (03:56)
[2022-06-22] MEDS ORDERED: POLYETHYLENE (MIRALAX) 17 GM PACK PO PRN (03:56)
[2022-06-22] MEDS: HYDROmorphone INJ 0.5 MG/0.5 ML SYR IV PRN ×5 (04:24→23:36)
--- NOTE | 2022-06-22 05:17 | Urology Consultation ---
Date of Consultation June 22, 2022 Assessment & Plan (1) Renal calculus: The patient has been admitted on the hospitalist service. We recommend proceeding as follows: Provide analgesics Provide antiemetics Provide Flomax for expulsive therapy Provide IV fluid for hydration Due to concern for urinary tract infection patient has been placed on Rocephin. This antibiotic should continue until culture results are available at which time antibiotics can be further tailored Would recommend keeping the patient n.p.o. Should be reevaluated by urology attending this morning to determine if cystoscopy with possible stent placement will be performed. Not feel she requires an urgent procedure at this time as patient is normotensive without tachycardia. She also does not have fever or leukocytosis and her renal function remains normal. Supervising Physician Co-Signing Physician Notes Discussed patient with JAABRI. Agree with plan. Due to poorly controlled pain, proceed to OR for cystoscopy, right retrograde pyelogram right ureteral stent placement. Risk and benefits discussed and consent obtained. Patient marked. History of Present Illness Reason for Consultation: Renal colic Attending Physician: Kanu Serrano MD History of Present Illness This is a 36-year-old female who has been having right-sided renal colic since April 2022. Patient says that she has been managing the pain with analgesics prescribed by her family physician. The patient notes over the past 24 to 48 hours she has had markedly worse right-sided flank pain that radiates to the front of her abdomen which has not been alleviated by medications that she was prescribed as an outpatient. She did not have any nausea or vomiting and she also denies any fevers, shakes, or chills. She denies any dysuria or hematuria. She notes that she has never had a kidney stone in the past. Since arrival to the hospital the patient has had labs and imaging which independent reviewed. A CT scan of the abdomen pelvis showed a 1.4 cm stone in the right renal pelvis resulting in hydronephrosis. There is peripelvic fat stranding noted. She is also noted to have a nonobstructing 4 mm stone within the left kidney. Labs include a CBC her white blood cell count, hemoglobin, hematocrit, and platelet count are all normal. Chemistry profile showed sodium, potassium, BUN, and creatinine were normal. Urinalysis showed turbid urine which was negative for nitrites but positive for leukocyte Estrace and had greater than 30 white blood cells per high-power field. There is also 2+ bacteria on the study. Urine test was negative. A COVID test was negative. At the time of my interview the patient was resting comfortably in bed and she was in no distress. Allergies Allergy/AdvReac Type Severity Reaction Status Date / Time azithromycin Allergy Mild Rash Verified 06/22/22 02:34 latex Allergy Mild RASH Verified 06/22/22 02:34 nickel Allergy Mild RASH/SKIN Verified 06/22/22 02:34 IRRITATION Penicillins Allergy Mild rash Verified 06/22/22 02:34 Home Medications Medication Instructions Recorded Confirmed Type azelastine 137 mcg (0.1 %) nasal 1 spray intranasal BID PRN Nasal 04/30/21 06/22/22 History spray aerosol Congestion brexpiprazole 1 mg tablet (Rexulti) 1 mg PO HS 04/30/21 06/22/22 History fluticasone propionate 50 1 spray intranasal BID PRN 04/30/21 06/22/22 History mcg/actuation nasal allergies spray,suspension hydroxyzine HCl 50 mg tablet 50 mg PO HS 04/30/21 06/22/22 History levothyroxine 112 mcg capsule 112 mcg PO QAM 04/30/21 06/22/22 History multivitamin 1 tab PO DAILY 04/30/21 06/22/22 History topiramate 50 mg tablet 50 mg PO HS 04/30/21 06/22/22 History vortioxetine 20 mg tablet 20 mg PO HS 04/30/21 06/22/22 History (Trintellix) bupropion HCl 75 mg tablet 150 mg PO BID 06/22/22 06/22/22 History calcium cit 250 mg-mag 40 mg-D3 2 tab PO TID 06/22/22 06/22/22 History 125 unit-zinc 3.75 mg-copy chief-salvador tablet (Calcium Citrate Plus) cholecalciferol (vitamin D3) 50 50 mcg PO DAILY 06/22/22 06/22/22 History mcg (2,000 unit) tablet (Vitamin D3) lisdexamfetamine 60 mg capsule 60 mg PO QAM 06/22/22 06/22/22 History (Vyvanse) omeprazole 20 mg capsule,delayed 20 mg PO QAM 06/22/22 06/22/22 History release pediatric zubzqiod-gfan-jxk 1 tab PO BID 06/22/22 06/22/22 History tamsulosin 0.4 mg capsule 0.4 mg PO QAM 06/22/22 06/22/22 History vitamin A 2,400 mcg capsule 2,400 mcg PO DAILY 06/22/22 06/22/22 History Patient History Medical History ADD (attention deficit disorder) Anxiety and depression Exercise-induced asthma HAS NOT USED INHALER FOR <1 YEAR GERD (gastroesophageal reflux disease) "SEVERE" Hx of migraines Hypertension Hypothyroidism Temporomandibular joint disorder Surgical History History of anesthesia reaction TROUBLE STAYING AWAKE WITH WISDOM TEETH REMOVAL History of bilateral tubal ligation History of esophagogastroduodenoscopy (EGD) History of tonsillectomy and adenoidectomy [place] teeth removed Family History Father Family history of diabetes mellitus Other No family history of adverse response to anesthesia Social History Smoking Status: Never smoker Second Hand Exposure: No; Do You Dip or Chew Tobacco: No; Hx Alcohol Use: Yes Alcohol type: other Hx Substance Use: No Preferred Language: [place]i Communication Ability: Effective Care Transition Manager Required: No Beliefs That Will Affect Care: None Current Living Situation: Spouse Current Living Situation Comment: AND 2 CHILDREN Feels Safe at Home: Yes Safety Concerns: Feels Safe At This Time Assistive Devices: Glasses Review of Systems Constitutional: no fever and no chills Eyes: no eye pain Ear, Nose, Mouth, Throat: no ear pain Respiratory: no cough and no dyspnea Cardiovascular: no chest pain Gastrointestinal: + abdominal pain (Radiating from right flank); no nausea and no vomiting Genitourinary: as per Subjective / HPI Musculoskeletal: + back pain (Right flank) Integumentary: no rash Neurologic: no localized weakness Physical Exam Constitutional: WD/WN, vitals as above Eyes: no conjunctival abnormality ENMT: Ears: no hearing impairment and no external ear abnormality Mouth: no oropharynx abnormality Neck: trachea midline Respiratory: normal respiratory effort; no respiratory distress and no labored breathing Cardiovascular: Rate/Rhythm: regular rate and regular rhythm Gastrointestinal (Abdomen): Abdomen is soft and nonrigid. There is no rebound tenderness or guarding but patient did have some tenderness noted in the right hypogastric area with palpation Musculoskeletal: No calf tenderness Skin: no rashes Neurologic: moves all extremities Psychiatric: A+Ox3, euthymic affect Genitourinary: + CVA tenderness (Noted on right side with percussion) Results & Data ([facility]) Vital Signs (Past 12 Hours) Vital Signs Temp Pulse Pulse Resp BP BP Pulse Ox 06/22/22 04:33 06/22/22 04:33 36.5 C 71 20 135/90 97 06/22/22 04:17 36.5 C 71 20 135/90 98 06/22/22 02:09 66 18 156/94 H 98 06/22/22 00:19 58 L 18 152/91 H 97 06/21/22 23:25 36.1 C L 81 16 146/94 H 98 O2 Del Method 06/22/22 04:33 Room Air 06/22/22 04:33 Room Air 06/22/22 04:17 Room Air 06/22/22 02:09 Room Air 06/22/22 00:19 Room Air 06/21/22 23:25 Room Air PG Care Time/CCT Total # of Minutes Spent Total Time Spent with Patient: Total time spent is greater than 50% in coordination of care (as documented) at patient's floor/unit and/or counseling patient: Coding Level of Care Code INP/OBS CONSULT LVL 5, 80 MIN Diagnoses Renal calculus N20.0
[2022-06-22] MEDS: LEVOTHYROXINE SODIUM 112 MCG TABLET PO SCH (06:29)
--- NOTE | 2022-06-22 06:44 | CT Scan Report ---
CT SCAN OF THE ABDOMEN AND PELVIS WITHOUT IV CONTRAST CLINICAL HISTORY: Right flank pain. COMPARISON STUDY: Abdominal CT dated 03/04/2011. TECHNIQUE: CT scan of the abdomen and pelvis is performed from the lung bases to the proximal femora. Images are reviewed in the axial, sagittal, and coronal planes. IV contrast was not administered for this examination. A dose lowering technique was utilized adhering to the principles of ALARA. CT DOSE: 1701.87 mGy.cm FINDINGS: Lung bases: The heart is normal in size and without pericardial effusion. The lung bases are clear. Liver: The unenhanced liver is normal in size, contour, and attenuation. There is no intrahepatic norman iary ductal dilatation. Gallbladder: Unremarkable. Spleen: Normal in size and attenuation. Pancreas: Unremarkable. Adrenal glands: Unremarkable. Kidneys: The unenhanced kidneys are normal in size and without hydronephrosis. There is focal cerebra l collecting system with a 1.8 cm stone in the right renal pelvis and mild surrounding infiltration. A 6 mm nonobstructing calculus is seen in the left lower pole. No ureteral stone is identified. There is no evidence of contour deforming renal mass lesion. Abdominal vasculature: The abdominal aorta is normal in course and caliber. Stomach and bowel: There is a small hiatal hernia. Postsurgical changes consistent with a Fabricio-en-Y g astric bypass procedure. There is no bowel obstruction. Mild/moderate fecal retention is seen through out the colon. The appendix is well-visualized and normal. Peritoneum: There is no intraperitoneal free air or abdominal ascites. Lymphadenopathy: None. Pelvic viscera: The bladder is decompressed and grossly unremarkable. The uterus and adnexa are filiberto l as visualized noting bilateral ovarian follicles. Postsurgical change is suggested involving the fa llopian tubes. Skeletal structures: No lytic or blastic lesions are seen. IMPRESSION: 1. The kidneys are normal in size and without hydronephrosis. 2. There is fullness of the right renal collecting system with a 1.8 cm calculus in the right renal p anthony and mild surrounding infiltration. Correlate with clinical findings and urinalysis. 3. A small left calculus is also seen in the left lower pole. 4. There is no ureteral stone. 5. The patient is status post Fabricio-en-Y gastric bypass procedure. No bowel obstruction is seen. 6. Additional findings as above. ACT 112: Negative or not required by law. Electronically signed by: Juan M Palomino M.D. 06/22/2022 6:41 AM
[2022-06-22 06:57] LABS: Basophils # (auto) 0.02 K/uL (0-0.2); Basophils % (auto) 0.3 %; Eosinophils # (auto) 0.12 K/uL (0-0.50); Eosinophils % (auto) 1.8 %; Hematocrit (blood only) 38.7 % (37.0-47.0); Hemoglobin 12.7 g/dl (12.0-16.0); Immature Granulocytes # (auto) 0.02 K/uL (0.01-0.20); Immature Granulocytes % (auto) 0.3 %; Lymphocytes # (auto) 2.75 K/uL (1.2-3.4); Lymphocytes % (auto) 40.5 %; Mean Corpuscular Hgb Conc 32.8 g/dL (32.0-36.0); Mean Corpuscular Volume 88.4 fL (80.0-100.0); Mean Platelet Volume 9.9 fL (9.4-12.4); Monocytes # (auto) 0.58 K/uL (0.11-0.59); Monocytes % (auto) 8.5 %; Neutrophils % (auto) 48.6 %; Platelet Count 222 K/uL (130-400); RDW Coefficient of Variation 12.2 % (11.5-14.5); RDW Standard Deviation 39.5 fL (36.4-46.3); Red Blood Count 4.38 M/uL (4.20-5.40); White Blood Count 6.79 K/ul (4.8-10.8)
[2022-06-22 07:18] LABS: Creatinine Clr Calc Pharmacy 137.5 ml/min; Magnesium 1.9 mg/dl (1.7-2.4)
--- NOTE | 2022-06-22 07:53 | History and Physical Report ---
DATE OF ADMISSION: 06/22/2022 CHIEF COMPLAINT: Right flank pain. HISTORY OF PRESENT ILLNESS: This is a 36-year-old female with past medical history significant for hypothyroidism, hyperlipidemia, hypertension, right bundle branch block, obesity, migraine, anxiety, attention deficit disorder, history of Fabricio-en-Y gastric bypass surgery, and depression, presents with right flank pain. The patient states this started around Karthik Hien, followed with PCP. The pain was not getting better. Ultrasound was done on 06/18/2022, which showed right nephrolithiasis, minimal pelviectasis without significant hydronephrosis, and hyperechoic lesion in left kidney was seen. She also had ultrasound done on 05/27/2021, and at that time, small calculus in right pelvis was found. She was treated outpatient on Flomax, but the pain was not getting better, it was on and off, and when had severe pain, she feels nauseous and is not improving, so she came to the ER today and CT scan preliminary report shows 1.4-cm stone in the right renal pelvis with mild hydronephrosis and surrounding peripelvic fat stranding and 4-mm nonobstructing stone within the left kidney. Normal uterus. No bladder stones. Normal appendix. The patient is afebrile, hemodynamically stable, saturating okay on room air, requiring pain medication in the ER. Denies any hematuria. No burning micturition. Normal bladder and bowel movements. No chest pain. No shortness of breath. No cough. No fevers. No chills. No headache. No blurred visions. No earache. No runny nose. No sore throat. ALLERGIES: AZITHROMYCIN, LATEX, NICKEL, AND PENICILLINS. PAST MEDICAL HISTORY: As mentioned above. PAST SURGICAL HISTORY: Dental surgery, EGDs, laparoscopic procedure of the liver, laparoscopic gastric bypass Fabricio-en-Y surgery, ligation of oviducts, paraesophageal hernia repair, tonsillectomy, adenoidectomy, and endoscopy. MEDICATIONS: The patient is on azelastine 1 spray intranasal b.i.d. p.r.n., bupropion 150 mg p.o. b.i.d., calcium citrate plus 2 tablets p.o. t.i.d., vitamin D 50 mcg p.o. daily, Flonase intranasal b.i.d. p.r.n., hydroxyzine 50 mg p.o. at bedtime, levothyroxine 112 mcg p.o. daily, Vyvanse 60 mg p.o. a.m., multivitamin 1 tablet p.o. daily, omeprazole 20 mg p.o. daily, pediatric multivitamin 1 tablet p.o. b.i.d., Rexulti 1 mg p.o. at bedtime, Flomax 0.4 mg p.o. a.m., topiramate 50 mg p.o. at bedtime, Trintellix 20 mg p.o. at bedtime, and vitamin A 2400 mcg p.o. daily. FAMILY HISTORY: Significant for father has blood disorder, paternal grandmother had lymphoma, father has diabetes, heart disorder, hypertension, obesity, and thyroid disorder; mother has hypertension and obesity, and brother has thyroid disorder. SOCIAL HISTORY: . Quit smoking in 2008, smoked half pack a day for 5 years. Alcohol rarely. No drug use. REVIEW OF SYSTEMS: As per HPI. Rest of the review of systems is negative. PHYSICAL EXAMINATION: GENERAL: The patient is obese, not in acute distress. VITAL SIGNS: Temperature 36.1, pulse 66, respiratory rate 18, blood pressure 156/94, and oxygen saturation 98% on room air. HEENT: Pupils equal, round, and reactive to light. Oral mucosa moist. NECK: No JVD. No neck masses. CARDIOVASCULAR: S1 and S2 heard. Regular rate and rhythm. No murmur. No gallop. RESPIRATORY SYSTEM: Normal AP diameter. No accessory muscle use. No wheezing. ABDOMEN: Soft. Bowel sounds present. Right CVA tenderness present. Mild guarding on the right flank region. No distention. CENTRAL NERVOUS SYSTEM: Cranial nerves II-XII grossly intact, nonfocal. EXTREMITIES: No edema. No erythema. LABORATORY DATA: WBC 8.9, hemoglobin 14.5, hematocrit 42.3, and platelets 293. Sodium 137, potassium 4, chloride 107, bicarbonate 24, BUN 16, creatinine 0.7, serum glucose 82, and calcium 9.4. Total bilirubin 0.6, AST 21, ALT 38, and alkaline phosphatase 159. Urinalysis positive for +3 protein, +1 ketones, +2 leukocyte esterase, and +2 bacteria. SARS-CoV-2 rapid test negative. Urine test negative. IMAGING DATA: CT of abdomen and pelvis preliminary report shows 1.4-cm stone within the right renal pelvis with mild hydronephrosis and surrounding peripelvic fat stranding, 4-mm nonobstructing stone within the left kidney, normal ureters, no bladder stones, and normal appendix. ASSESSMENT AND PLAN: This 36-year-old male presents with right flank pain and found to have right kidney stone. 1. Right flank pain, right renal calculus at 1.4 cm with mild hydronephrosis, possible pyelonephritis, urinary tract infection. ER has placed her on Rocephin, which we will continue. Keep her n.p.o., IV fluids, IV antiemetics, and IV pain medication p.r.n. Consult urology in the a.m. 2. History of obesity, status post gastric bypass surgery. 3. Hypertension, currently not on any medications.Will monitor. 4. History of depression, continue bupropion, Rexulti, and Trintellix. 5. History of attention deficit hyperactivity disorder, on Vyvanse. 6. Hypothyroidism, on Synthroid. 7. Gastroesophageal reflux disease, on omeprazole. 8. Migraines, on Topamax. 9. Deep venous thrombosis, the patient is currently on sequential compression devices. DISPOSITION: Admit to medical floor. Expected to be discharged to home and follow with family doctor. Level 1 full code. Job ID: [id number] [facility]
[2022-06-22] MEDS: buPROPion HCl 75 MG TABLET PO SCH ×2 (08:06→20:28)
[2022-06-22] MEDS: PANTOprazole 40 MG TAB PO SCH (08:06)
[2022-06-22] MEDS: TAMSULOSIN HCL 0.4 MG CAP PO SCH (08:06)
[2022-06-22] MEDS: MULTIVITAMIN CHEWABLE TAB PO SCH (08:06)
[2022-06-22] MEDS ORDERED: MULTIVITAMIN TAB PO SCH (09:00)
[2022-06-22] MEDS: SODIUM CHLORIDE 0.9% 1000ML 1,000 ML IV SCH ×2 (10:07→18:15)
--- NOTE | 2022-06-22 11:21 | Anesthesiology Consultation ---
Date of Service June 22, 2022 Assessment & Plan (1) Encounter for pre-operative examination: Chart Review Chart Review: Acceptable Risk for Surgery History Surgery Operation Date: 06/22/22 12:30 Proposed Procedures p Ureteral Stent(Right) - Santi Cartre MD Height/Weight Height: 5 ft 7 in Weight: 99.9 kg Allergies Allergy/AdvReac Type Severity Reaction Status Date / Time azithromycin Allergy Mild Rash Verified 06/22/22 02:34 latex Allergy Mild RASH Verified 06/22/22 02:34 nickel Allergy Mild RASH/SKIN Verified 06/22/22 02:34 IRRITATION Penicillins Allergy Mild rash Verified 06/22/22 02:34 Medications Home Medications Medication Instructions Recorded Confirmed Last Taken azelastine 137 mcg (0.1 %) nasal 1 spray intranasal BID PRN Nasal 04/30/21 06/22/22 Unknown spray aerosol Congestion brexpiprazole 1 mg tablet (Rexulti) 1 mg PO HS 04/30/21 06/22/22 Unknown fluticasone propionate 50 1 spray intranasal BID PRN 04/30/21 06/22/22 Unknown mcg/actuation nasal allergies spray,suspension hydroxyzine HCl 50 mg tablet 50 mg PO HS 04/30/21 06/22/22 Unknown levothyroxine 112 mcg capsule 112 mcg PO QAM 04/30/21 06/22/22 Unknown multivitamin 1 tab PO DAILY 04/30/21 06/22/22 Unknown topiramate 50 mg tablet 50 mg PO HS 04/30/21 06/22/22 Unknown vortioxetine 20 mg tablet 20 mg PO HS 04/30/21 06/22/22 Unknown (Trintellix) bupropion HCl 75 mg tablet 150 mg PO BID 06/22/22 06/22/22 Unknown calcium cit 250 mg-mag 40 mg-D3 2 tab PO TID 06/22/22 06/22/22 Unknown 125 unit-zinc 3.75 mg-endoscopy support specialist-salvador tablet (Calcium Citrate Plus) cholecalciferol (vitamin D3) 50 50 mcg PO DAILY 06/22/22 06/22/22 Unknown mcg (2,000 unit) tablet (Vitamin D3) lisdexamfetamine 60 mg capsule 60 mg PO QAM 06/22/22 06/22/22 Unknown (Vyvanse) omeprazole 20 mg capsule,delayed 20 mg PO QAM 06/22/22 06/22/22 Unknown release pediatric vkrwafkk-gbif-llp 1 tab PO BID 06/22/22 06/22/22 Unknown tamsulosin 0.4 mg capsule 0.4 mg PO QAM 06/22/22 06/22/22 Unknown vitamin A 2,400 mcg capsule 2,400 mcg PO DAILY 06/22/22 06/22/22 Unknown Active Medications Generic Name Dose Route Start Last Admin Trade Name Freq PRN Reason Stop Dose Admin Bupropion HCl 150 mg 06/22/22 09:00 06/22/22 08:06 Bupropion Hcl 75 Mg Tablet PO 07/22/22 08:59 Not Given BID NEDRA Hydromorphone HCl 0.5 mg 06/22/22 03:56 06/22/22 11:11 Hydromorphone Inj 0.5 Mg/0.5 Ml Syr IV 07/06/22 03:55 0.5 mg Q3H PRN Administration Pain Sodium Chloride 1,000 mls @ 80 mls/hr 06/22/22 08:45 06/22/22 10:07 Nss 1000ml IV 06/23/22 09:44 80 mls/hr .[id number] NEDRA Administration Levothyroxine Sodium 112 mcg 06/22/22 06:30 06/22/22 06:29 Levothyroxine Sodium 112 Mcg Tablet PO 07/22/22 06:29 112 mcg DAILYBB NEDRA Administration Miscellaneous 1 each 06/22/22 08:00 06/22/22 08:05 Brexpiprazole [Rexulti] - Order Awaiting Action N/A 07/22/22 07:59 Not Given QS NEDRA Miscellaneous 1 each 06/22/22 08:00 06/22/22 08:05 Lisdexamfetamine [Vyvanse] 60 Mg - Order Awaiting Action N/A 07/22/22 07:59 Not Given QS NEDRA Miscellaneous 1 each 06/22/22 08:00 06/22/22 08:06 Vortioxetine [Trintellix] 20 Mg - Order Awaiting Action N/A 07/22/22 07:59 Not Given QS NEDRA Multivitamins/Folic Acid/Vitamin C 1 tab 06/22/22 09:00 06/22/22 08:06 Multivitamin Chewable Tab PO 03/07/23 08:59 Not Given QAM NEDRA Pantoprazole Sodium 40 mg 06/22/22 09:00 06/22/22 08:06 Pantoprazole 40 Mg Tab PO 07/22/22 08:59 Not Given QAM NEDRA Tamsulosin HCl 0.4 mg 06/22/22 09:00 06/22/22 08:06 Tamsulosin Hcl 0.4 Mg Cap PO 07/22/22 08:59 Not Given QAM NEDRA Past Medical History Medical History ADD (attention deficit disorder) Anxiety and depression Exercise-induced asthma HAS NOT USED INHALER FOR <1 YEAR GERD (gastroesophageal reflux disease) "SEVERE" Hx of migraines Hypertension Hypothyroidism Temporomandibular joint disorder Past Family History Family History Father Family history of diabetes mellitus Other No family history of adverse response to anesthesia Past Surgical History Surgical History History of anesthesia reaction TROUBLE STAYING AWAKE WITH WISDOM TEETH REMOVAL History of bilateral tubal ligation History of esophagogastroduodenoscopy (EGD) History of tonsillectomy and adenoidectomy [place] teeth removed Social History Smoking Status: Never smoker tobacco type: cigarettes Do You Dip or Chew Tobacco: No Hx Alcohol Use: Yes Alcohol type: other alcohol intake frequency: holidays/special occasions only Alcohol Intake Frequency Comment: must be sugar free alcohol Hx Substance Use: No substance use type: does not use Physical Exam Vital Signs Last Vital Signs Temp 36.4 C L 06/22/22 07:33 Pulse 78 06/22/22 07:33 Resp 16 06/22/22 07:33 BP 122/82 06/22/22 07:33 Pulse Ox 97 06/22/22 07:33 O2 Del Method 06/22/22 07:33 Testing Laboratory Results 06/22/22 06:31 06/22/22 06:31 Urine Color Dark Yellow 06/21/22 23:40 Urine Appearance Turbid (Clear) A 06/21/22 23:40 Urine pH 5.5 (4.5-7.5) 06/21/22 23:40 Ur Specific [place] 1.027 (1.000-1.030) 02/04/23 23:40 Urine Protein 3+ (Negative) H 06/21/22 23:40 Urine Glucose (UA) Negative (Negative) 06/21/22 23:40 Urine Ketones 1+ (Negative) H 06/21/22 23:40 Urine Nitrite Negative (Negative) 06/21/22 23:40 Ur Leukocyte Esterase 2+ (Negative) H 06/21/22 23:40 Urine WBC (Auto) >30 /hpf (0-5) H 06/21/22 23:40 Urine RBC (Auto) >30 /hpf (0-4) H 06/21/22 23:40 U Hyaline Cast (Auto) 0 /lpf (0-5) 06/21/22 23:40 U Epithel Cells (Auto) >30 /lpf (0-5) H 06/21/22 23:40 Urine Bacteria (Auto) 2+ (Negative) H 06/21/22 23:40 06/21/22 23:40 POC Ur Test NEG
[2022-06-22] MEDS ORDERED: PROPOFOL IV EMULSION 10 MG/ML 20 ML VIAL IV ONE (12:27)
[2022-06-22] MEDS ORDERED: ONDANSETRON INJ 2 MG/ML 2 ML VIAL ONE (12:27)
[2022-06-22] MEDS ORDERED: MIDAZOLAM HCL 1 MG/ML 2ML VIAL ONE (12:27)
[2022-06-22] MEDS ORDERED: DEXAMETHASONE SOD INJ 4 MG/ML VIAL ONE (12:27)
[2022-06-22] MEDS ORDERED: fentaNYL citrate 100 MCG/2 ML VIAL ONE ×2 (12:28)
[2022-06-22] MEDS ORDERED: fentaNYL citrate 100 MCG/2 ML VIAL IV PRN (12:30)
[2022-06-22] MEDS ORDERED: ATROPINE SULFATE 0.1 MG/ML 10ML SYR IV PRN (12:30)
[2022-06-22] MEDS ORDERED: DIATRIZOATE MEGLUMINE 30% 100ML VIAL INSTIL ONE (12:50)
--- NOTE | 2022-06-22 12:58 | Hospitalist Progress Note ---
Date of Service June 22, 2022 Assessment & Plan (1) Renal calculus: Plan 36-year-old lady with PMH of hypothyroidism, HLD, HTN, right bundle branch block, obesity, migraine, anxiety, ADD D, Fabricio-en-Y gastric bypass surgery, depression presented with right flank pain 2/4. She is being managed for the following: Right renal calculus Right flank pain Patient presents with right-sided abdominal pain, worsening. WBC WNL, afebrile at presentation. Admitting urine analysis equivocal for UTI. Admitting CTAP: 1.8 cm calculus at the right renal pelvis/mild surrounding infiltration. A small left calculus is also seen in the left lower pole. No ureteral stone. Patient is n.p.o., for possible cystoscopy/stent placement today, urology on board, c/w pain management, IV fluids, can resume diet with urology clearance after the procedure. Continue with Rocephin 2/5 until urine cultures are finalized. Other chronic medical conditions: History of obesity, status post gastric bypass surgery HTN: Not on any medication at home. Continue to monitor. Depression: Continue with bupropion, Rexulti, Trintellix ADD: Continue with Vyvanse Hypothyroidism: Continue with Synthroid GERD: Continue with omeprazole Migraine: Continue Topamax DVT prophylaxis: SCDs for now Full code Admission and Anticipated Discharge Date Admission Date: June 22, 2022 Subjective Patient seen and examined at bedside as a follow-up for right flank pain, right hydronephrosis with 1.8 cm renal calculus. Patient was lying in bed, on room air, NAD, reports pain getting better controlled, she is n.p.o. for possible cystoscopy/right renal stent placement today, denies any fever or pain or burning with passing urine in the last 1 week, denies any headache or dizziness or sore throat or cough or chest pain or palpitation or other review of symptoms. Physical Exam Physical Exam: GENERAL: Alert and oriented x3. NAD, on RA. HEENT: No pallor, no icterus. Pupils equal, round and reactive to light. Oral mucosa moist. NECK: No JVD, no neck masses. HEART: S1 and S2 heard. Regular rate and rhythm. No murmur, no gallop. RESPIRATORY SYSTEM: Normal AP diameter. No accessory muscle use. No wheezing, no crackles. ABDOMEN: Soft, bowel sounds present, rt abd x mild tender, no distention. CENTRAL NERVOUS SYSTEM: No facial droop. Speech is clear. Obeys simple commands. Moves extremities. EXTREMITIES: No edema, no erythema seen. Results & Data Results & Data ([facility]) Vital Signs (Past 12 Hours) Vital Signs Temp Pulse Resp BP Pulse Ox O2 Del Method 06/22/22 07:33 36.4 C L 78 16 122/82 97 Room Air 06/22/22 04:33 Room Air 06/22/22 04:33 36.5 C 71 20 135/90 97 Room Air 06/22/22 04:17 36.5 C 71 20 135/90 98 Room Air 06/22/22 02:09 66 18 156/94 H 98 Room Air
--- NOTE | 2022-06-22 13:00 | Post Operative Brief Note ---
PG Immediate Post Op with CF Date of Surgery June 22, 2022 Pre & Post Diagnosis Operation Date: 06/22/22 12:30 Pre-Op Diagnosis: Right calculus Post-Op Diagnosis: Right calculus I identified the patient and participated in the time-out.: Yes Procedure Operation Date: 06/22/22 12:30 Actual Procedures p Cystoscopy, Right Retrograde Pyelogram, Right Ureteral Stent Placement(Not Applicable) - Santi Carter MD Surgeon Santi Carter MD Refrigeration System Installer None Estimated Blood Loss 0 Findings See Below Mild right hydronephrosis. Stent in appropriate position Specimens Specimen Description: None per surgeon Drains Other (6 [place] by 26 cm right ureteral stent) Anesthesia Type General
--- NOTE | 2022-06-22 13:03 | Operative Report ---
PG Post Operative Report Pre & Post Diagnosis Operation Date: 06/22/22 12:30 Pre-Op Diagnosis: Right calculus Post-Op Diagnosis: Right calculus I identified the patient and participated in the time-out.: Yes Procedure Operation Date: 06/22/22 12:30 Actual Procedures p Cystoscopy, Right Retrograde Pyelogram with radiographic interpretation, Right Ureteral Stent Placement(Not Applicable) - Santi Carter MD Surgeon Santi Carter MD Manager Of Internal None Estimated Blood Loss 0 Findings See Below Mild right hydronephrosis. Stent in appropriate position. Specimens None Drains 6 [place] by 26 cm right ureteral stent Anesthesia Type MAC Complications none Indications 36-year-old female with a large right renal pelvis stone with moderate hydronephrosis and UA concerning for infection. Risk and benefits discussed and opted for stent placement. Description of Procedure After informed consent was obtained, the patient was transported operative suite. MAC anesthesia was induced. The patient was placed in dorsolithotomy position prepped and draped in a sterile fashion. They received preoperative ceftriaxone for antibiotic prophylaxis. An appropriate surgical timeout was performed. A 22 [place] rigid scope was inserted per urethra into the bladder. Escobedo cystoscopy revealed no stones or lesions. I turned my attention the right ureteral orifice and intubated this with a 5 [place] open-ended catheter. A right retrograde pyelogram was shot which showed mild hydronephrosis. A sensor wire was advanced into the kidney and confirmed fluoroscopically. A 6 [place] by 24 cm right ureteral stent was advanced however this was too short so I swapped this out for a longer stent. A 6 [place] by 26 cm right ureteral stent was deployed with a good proximal coil in the renal pelvis and a good distal coil noted in the bladder, confirmed fluoroscopically and under direct visualization, respectively. The bladder was emptied and the scope was removed. This concluded the end of the case. All counts were correct at the end of the case. I was present, scrubbed, and actively participated for the entirety of the procedure. I attest to the content of the Intraoperative Record and any orders documented therein. Any exceptions are noted below.
[2022-06-22] MEDS ORDERED: KETOROLAC 30 MG/ML VIAL ONE (13:08)
--- NOTE | 2022-06-22 13:31 | Anesthesiology Progress Note ---
Date of Service June 22, 2022 Anesthesia Post Procedure Vital Signs Vital Signs: Temp Pulse Pulse Pulse Resp BP BP 06/22/22 13:15 63 18 106/70 06/22/22 13:06 36.1 C L 63 11 L 108/63 06/22/22 07:33 36.4 C L 78 16 122/82 06/22/22 04:33 06/22/22 04:33 36.5 C 71 20 135/90 06/22/22 04:17 36.5 C 71 20 135/90 06/22/22 02:09 66 18 156/94 H 06/22/22 00:19 58 L 18 152/91 H 06/21/22 23:25 36.1 C L 81 16 146/94 H Pulse Ox O2 Del Method O2 Flow Rate 06/22/22 13:15 99 Oxymask 5 06/22/22 13:06 98 Oxymask 5 06/22/22 07:33 97 Room Air 06/22/22 04:33 Room Air 06/22/22 04:33 97 Room Air 06/22/22 04:17 98 Room Air 06/22/22 02:09 98 Room Air 06/22/22 00:19 97 Room Air 06/21/22 23:25 98 Room Air Pain Intensity Right Flank: Pain Intensity: 8 Transfer of Care Handoff Completed per policy Notes Mental Status: alert / awake / arousable Patient Amnestic to Procedure: Yes Nausea / Vomiting: adequately controlled Pain: adequately controlled Airway Patency, RR, SpO2: stable & adequate BP & HR: stable & adequate Hydration State: stable & adequate Anesthetic Complications: no major complications apparent
--- NOTE | 2022-06-22 13:46 | Fluoroscopy Report ---
INTRAOPERATIVE RADIOGRAPH CLINICAL HISTORY: Right ureteral stent placement. Fluoro time: 13 seconds Exposure: 2.53 mGy FINDINGS: A single spot fluoroscopic view of the right upper quadrant is correlated with abdominal CT dated 06/21/2022. Contrast in the right renal collecting system shows no hydronephrosis. The proximal end of a right ureteral stent is in appropriate position. IMPRESSION: Intraoperative image from a right ureteral stent placement procedure as above. Electronically signed by: Juan M Palomino M.D. 06/22/2022 1:45 PM
[2022-06-22] MEDS: ACETAMINOPHEN 325 MG TAB PO PRN ×2 (16:26→22:28)
[2022-06-22] MEDS ORDERED: hydrOXYzine HCl 25 MG TAB PO SCH (21:00)
[2022-06-22] MEDS ORDERED: TOPIRAMATE 50 MG TAB PO SCH (21:00)
[2022-06-22] MEDS ORDERED: KETOROLAC TROMETHAMINE 15 MG/ML VIAL IV ONE (22:41)
[2022-06-22] MEDS ORDERED: KETOROLAC TROMETHAMINE 15 MG/ML VIAL ONE (23:05)
[2022-06-23] MEDS ORDERED: cefTRIAXone SODIUM 2,000 MG in DEXTROSE 5% 50 ML IV SCH (02:00)
[2022-06-23] MEDS: LEVOTHYROXINE SODIUM 112 MCG TABLET PO SCH (05:53)
[2022-06-23 06:23] LABS: Hematocrit (blood only) 36.9 % (37.0-47.0); Hemoglobin 12.3 g/dl (12.0-16.0); Mean Corpuscular Hemoglobin 29.5 pg (25.0-34.0); Mean Corpuscular Hgb Conc 33.3 g/dL (32.0-36.0); Mean Corpuscular Volume 88.5 fL (80.0-100.0); Mean Platelet Volume 10.4 fL (9.4-12.4); Platelet Count 219 K/uL (130-400); RDW Coefficient of Variation 12.3 % (11.5-14.5); RDW Standard Deviation 40.4 fL (36.4-46.3); Red Blood Count 4.17 M/uL (4.20-5.40); White Blood Count 7.89 K/ul (4.8-10.8)
[2022-06-23 06:42] LABS: BUN Creatinine Ratio 16.9 (10-20); Calcium 8.7 mg/dl (8.5-10.1); Creatinine Clr Calc Pharmacy 135.6 ml/min; Est GFR (African American) 128.8 ml/min; Est GFR (Non-African American) 111.1 ml/min; Potassium 4.2 mmol/L (3.5-5.1)
--- NOTE | 2022-06-23 08:01 | Urology Progress Note ---
Date of Service June 23, 2022 Assessment & Plan (1) Renal calculus: (2) Right flank pain: Plan 36-year-old female with a right proximal obstructing ureteral calculus who is status post cystoscopy and stent placement on 06/22/2022. Symptoms improved, pain well controlled Urology has sent message for follow-up to discuss stone treatment in clinic Follow-up urine culture and treat if necessary Stable for discharge home from a urologic perspective. Recommend discharging with narcotics, alternating Tylenol and ibuprofen, Flomax daily as well as Ditropan 5 mg 3 times daily as needed. Admission and Anticipated Discharge Date Admission Date: June 22, 2022 Subjective Patient went to the OR yesterday for cystoscopy and right stent placement. R eports feeling better. Afebrile with stable vitals. Labs stable this morning. Urine culture is pending. Review of Systems Review of Systems: 14 point review of systems negative outside of what is listed above in HPI Physical Exam Physical Exam: General: Alert and oriented, no acute distress HEENT: Normocephalic, mucous membranes moist Pulmonary: Nonlabored respirations Abdomen: Nondistended Extremities: Moves all 4 spontaneously Neuro: No gross deficits Skin: Warm, dry, no rashes noted Results & Data ([facility]) Vital Signs (Past 12 Hours) Vital Signs Temp Pulse Resp BP Pulse Ox O2 Del Method 06/23/22 07:26 36.9 C 65 16 136/81 95 Room Air 06/22/22 22:21 36.7 C 62 16 108/69 97 Room Air PG Care Time/CCT Total # of Minutes Spent Total Time Spent with Patient: Total time spent is greater than 50% in coordination of care (as documented) at patient's floor/unit and/or counseling patient: Coding Level of Care Code 09445 SUB INP/OBS CARE 2/35MIN Diagnoses Renal calculus N20.0 Right flank pain R10.9
[2022-06-23] MEDS: MULTIVITAMIN CHEWABLE TAB PO SCH (08:55)
[2022-06-23] MEDS: TAMSULOSIN HCL 0.4 MG CAP PO SCH (08:55)
[2022-06-23] MEDS: buPROPion HCl 75 MG TABLET PO SCH (08:55)
[2022-06-23] MEDS: PANTOprazole 40 MG TAB PO SCH (08:55)
[2022-06-23] MEDS: ACETAMINOPHEN 325 MG TAB PO PRN (11:19)
[2022-06-23] MEDS: HYDROmorphone INJ 0.5 MG/0.5 ML SYR IV PRN (11:38)
--- NOTE | 2022-06-23 12:42 | Discharge Summary ---
Date of Service June 23, 2022 Admission HPI Per Admitting Provider CHIEF COMPLAINT: Right flank pain. HISTORY OF PRESENT ILLNESS: This is a 36-year-old female with past medical history significant for hypothyroidism, hyperlipidemia, hypertension, right bundle branch block, obesity, migraine, anxiety, attention deficit disorder, history of Fabricio-en-Y gastric bypass surgery, and depression, presents with right flank pain. The patient states this started around Karthik Hien, followed with PCP. The pain was not getting better. Ultrasound was done on 06/18/2022, which showed right nephrolithiasis, minimal pelviectasis without significant hydronephrosis, and hyperechoic lesion in left kidney was seen. She also had ultrasound done on 05/27/2021, and at that time, small calculus in right pelvis was found. She was treated outpatient on Flomax, but the pain was not getting b adeline, it was on and off, and when had severe pain, she feels nauseous and is not improving, so she came to the ER today and CT scan preliminary report shows 1.4-cm stone in the right renal pelvis with mild hydronephrosis and surrounding peripelvic fat stranding and 4-mm nonobstructing stone within the left kidney. Normal uterus. No bladder stones. Normal appendix. The patient is afebrile, hemodynamically stable, saturating okay on room air, requiring pain medication in the ER. Denies any hematuria. No burning micturition. Normal bladder and bowel movements. No chest pain. No shortness of breath. No cough. No fevers. No chills. No headache. No blurred visions. No earache. No runny nose. No sore throat. ALLERGIES: AZITHROMYCIN, LATEX, NICKEL, AND PENICILLINS. PAST MEDICAL HISTORY: As mentioned above. PAST SURGICAL HISTORY: Dental surgery, EGDs, laparoscopic procedure of the liver, laparoscopic gastric bypass Fabricio-en-Y surgery, ligation of oviducts, paraesophageal hernia repair, tonsillectomy, adenoidectomy, and endoscopy. MEDICATIONS: The patient is on azelastine 1 spray intranasal b.i.d. p.r.n., bupropion 150 mg p.o. b.i.d., calcium citrate plus 2 tablets p.o. t.i.d., vitamin D 50 mcg p.o. daily, Flonase intranasal b.i.d. p.r.n., hydroxyzine 50 mg p.o. at bedtime, levothyroxine 112 mcg p.o. daily, Vyvanse 60 mg p.o. a.m., multivitamin 1 tablet p.o. daily, omeprazole 20 mg p.o. daily, pediatric multivitamin 1 tablet p.o. b.i.d., Rexulti 1 mg p.o. at bedtime, Flomax 0.4 mg p.o. a.m., topiramate 50 mg p.o. at bedtime, Trintellix 20 mg p.o. at bedtime, and vitamin A 2400 mcg p.o. daily. FAMILY HISTORY: Significant for father has blood disorder, paternal grandmother had lymphoma, father has diabetes, heart disorder, hypertension, obesity, and thyroid disorder; mother has hypertension and obesity, and brother has thyroid disorder. SOCIAL HISTORY: . Quit smoking in 2008, smoked half pack a day for 5 years. Alcohol rarely. No drug use. REVIEW OF SYSTEMS: As per HPI. Rest of the review of systems is negative. Admission Exam Per Admitting Provider GENERAL: The patient is obese, not in acute distress. VITAL SIGNS: Temperature 36.1, pulse 66, respiratory rate 18, blood pressure 156/94, and oxygen saturation 98% on room air. HEENT: Pupils equal, round, and reactive to light. Oral mucosa moist. NECK: No JVD. No neck masses. CARDIOVASCULAR: S1 and S2 heard. Regular rate and rhythm. No murmur. No gallop. RESPIRATORY SYSTEM: Normal AP diameter. No accessory muscle use. No wheezing. ABDOMEN: Soft. Bowel sounds present. Right CVA tenderness present. Mild guarding on the right flank region. No distention. CENTRAL NERVOUS SYSTEM: Cranial nerves II-XII grossly intact, nonfocal. EXTREMITIES: No edema. No erythema. Principal Diagnosis Right renal calculus Right flank pain Discharge Exam GENERAL: Alert and oriented x3. NAD, on RA. HEENT: No pallor, no icterus. Pupils equal, round and reactive to light. Oral mucosa moist. NECK: No JVD, no neck masses. HEART: S1 and S2 heard. Regular rate and rhythm. No murmur, no gallop. RESPIRATORY SYSTEM: Normal AP diameter. No accessory muscle use. No wheezing, no crackles. ABDOMEN: Soft, bowel sounds present, rt abd x mild tender, improving, no distention. CENTRAL NERVOUS SYSTEM: No facial droop. Speech is clear. Obeys simple commands. Moves extremities. EXTREMITIES: No edema, no erythema seen. Discharge Data Allergies Allergy/AdvReac Type Severity Reaction Status Date / Time azithromycin Allergy Mild Rash Verified 06/22/22 02:34 latex Allergy Mild RASH Verified 06/22/22 02:34 nickel Allergy Mild RASH/SKIN Verified 06/22/22 02:34 IRRITATION Penicillins Allergy Mild rash Verified 06/22/22 02:34 Consultations 06/22/22 02:02 ED Decision to Admit Stat 06/22/22 08:00 Consult Urology Routine Procedures Performed Operation Date: 06/22/22 12:30 Actual Procedures p Cystoscopy, Right Retrograde Pyelogram, Right Ureteral Stent Placement(Not Applicable) - Santi Carter MD Ordered Studies 06/21/22 23:39 CT abd pelvis wo con Urgent 06/22/22 12:43 FL retrograde includes kub Routine Hospital Course (1) Renal calculus: Plan 36-year-old lady with PMH of hypothyroidism, HLD, HTN, right bundle branch block, obesity, migraine, anxiety, ADD D, Fabricio-en-Y gastric bypass surgery, depression presented with right flank pain 2/4. She is being managed for the following: Right renal calculus Right flank pain Patient presents with right-sided abdominal pain, worsening. WBC WNL, afebrile at presentation. Admitting urine analysis equivocal for UTI. Admitting CTAP: 1.8 cm calculus at the right renal pelvis/mild surrounding infiltration. A small left calculus is also seen in the left lower pole. No ureteral stone. s/p rt renal stent, uro f/u as OP, pain mx and atb on dc. UCx yet to be finalized, pt to f/u w/ pcp /urology office for final results. Pt aware. Other chronic medical conditions: History of obesity, status post gastric bypass surgery HTN: Not on any medication at home. Continue to monitor. Depression: Continue with bupropion, Rexulti, Trintellix ADD: Continue with Vyvanse Hypothyroidism: Continue with Synthroid GERD: Continue with omeprazole Migraine: Continue Topamax DVT prophylaxis: SCDs for now Full code Patient being discharged home with following instruction at the point of discharge: Follow-up with the primary care physician within 1 week time and likely you will need labs CBC/CMP/magnesium/phosphorus. Follow-up with urology as an outpatient as per your discussion with urologist while in the hospital. You will need evaluation for further management of your renal stone and also you will need them for your stent care. You will be discharged on antibiotic to complete the course for UTI, recommend to follow-up on the final results of your urine culture that was obtained while in the hospital either from your PCP office or from your urology office. For your pain, you can use [id number] Tylenol or ibuprofen for mild to moderate pain. For severe pain you are being discharged on few days worth of Percocet, if your pain is worsening/ongoing, you will need further evaluation by your PCP office for further pain management prescription. For the duration of use of Percocet, you can use [id number] stool softener for laxative effect. Take medications as prescribed. Please make sure that you are able to get your medications today by calling your pharmacy before you leave the hospital so that your treatment continuity is not broken. Home Health Attestation I certify that this patient is under my care and that I, or a physicians magnus greenberg working with me, had a face to-face encounter that meets the home health lefu-xi-oxxf encounter requirements with this patient. The encounter with the patient was in whole, or in part, for the following medical condition, which is the primary reason for home health care (list medical condition): I certify that, based on my findings, the following services are medically necessary home health services: My clinical findings support the need for the above services because: Further, I certify that my clinical findings support that this patient is homebound (i.e. absences from home require considerable and taxing effort and are for medical reasons or church services or infrequently or of short duration when for other reasons) because: Certification for Home Health Services: Based on the above findings, I certify that this patient is confined to the home and needs intermittent snf care, physical therapy and/or speech therapy or continues to need occupational therapy. The patient is under my care, and I have initiated the establishment of the plan of care. This patient will be followed by a physician who will periodically review the plan of care. Total Time Total Time Spent Total Time Spent (In Minutes): 45 Discharge Plan Discharge Items Patient Disposition: Home - Self-Care Reason For Visit: KIDNEY STONE Discharge Diagnosis: Right renal calculus Right flank pain Activity: Resume your previous activity Non-emergency contact: Primary Care Provider Call non-emergency contact if: you have any medication questions, your symptoms worsen, your pain is not controlled, your pain is worsening and your temperature is above 101 Follow-up/Referrals: Eunice Chen PA-C [Primary Care Provider] - (Date & Time 06/26/2022 10:40 AM Provider Eunice Chen PA-C Department [facility] ) Diet: Regular Addtl Attending Provider Instructions: Follow-up with the primary care physician within 1 week time and likely you will need labs CBC/CMP/magnesium/phosphorus. Follow-up with urology as an outpatient as per your discussion with urologist while in the hospital. You will need evaluation for further management of your renal stone and also you will need them for your stent care. You will be discharged on antibiotic to complete the course for UTI, recommend to follow-up on the final results of your urine culture that was obtained while in the hospital either from your PCP office or from your urology office. For your pain, you can use [id number] Tylenol or ibuprofen for mild to m oderate pain. For severe pain you are being discharged on few days worth of Percocet, if your pain is worsening/ongoing, you will need further evaluation by your PCP office for further pain management prescription. For the duration of use of Percocet, you can use [id number]-vooiyqh stool softener for laxative effect. Take medications as prescribed. Please make sure that you are able to get your medications today by calling your pharmacy before you leave the hospital so that your treatment continuity is not broken. Pending Studies at Discharge: Yes (Admitting urine culture final results.) Stand-Alone Forms: [email or web address], Smoking Cessation Medications and DC Order Prescriptions: New acetaminophen 325 mg Tablet 650 mg PO Q8H PRN (Reason: mild pain) Qty: 60 0RF oxycodone-acetaminophen [Percocet] 5-325 mg tablet 1 tab PO Q8H PRN (Reason: pain (scale score 7-10)) 5 Days Qty: 15 0RF oxybutynin chloride 5 mg tablet 5 mg PO TID PRN (Reason: bladder spasms) Qty: 15 0RF sulfamethoxazole-trimethoprim [Bactrim DS] 800-160 mg tablet 1 tab PO BID 5 Days Qty: 10 0RF Continued multivitamin Tablet 1 tab PO DAILY hydroxyzine HCl 50 mg Tablet 50 mg PO HS azelastine 137 mcg (0.1 %) Aerosol,[place] 1 spray INTRANASAL BID PRN (Reason: Nasal Congestion) fluticasone propionate 50 mcg/actuation [place],Suspension 1 spray INTRANASAL BID PRN (Reason: allergies) topiramate 50 mg Tablet 50 mg PO HS levothyroxine 112 mcg Capsule 112 mcg PO QAM Trintellix 20 mg Tablet 20 mg PO HS Rexulti 1 mg Tablet 1 mg PO HS bupropion HCl 75 mg tablet 150 mg PO BID vitamin A 2,400 mcg Capsule 2,400 mcg PO DAILY Centrum Kids-Extra C Tablet,Chewable 1 tab PO BID Rx Instructions: administer with a meal tamsulosin 0.4 mg capsule 0.4 mg PO QAM omeprazole 20 mg capsule,delayed release(DR/EC) 20 mg PO QAM Vyvanse 60 mg capsule 60 mg PO QAM cholecalciferol (vitamin D3) [Vitamin D3] 50 mcg (2,000 unit) Tablet 50 mcg PO DAILY Calcium Citrate Plus 944-17-419-3.75 bm-uc-lcjf-mg Tablet 2 tab PO TID Rx Instructions: petites Discharge Orders: Discharge Order (Routine); Ordered 06/23/22 Ordered By: Kanu Serrano Admission Data Admit Date/Time: 06/22/22 03:02 Attending Provider: Kanu Serrano Admit Provider: Wei Schwarz Primary Care Provider: Eunice Chen Other Providers: Wei Schwarz ; Stu Gandhi ; Elmo Read ; Epifanio Torres ; Karine De Santiago ; Markie Antonio ; Sheryl Antoine Melissa A. ; Ernst Gregorio ; Hui Carnes ; Italia Jones ; Rambo Andrew ; Santi Carter ; Alana Neumann
== END 2022-06-23 13:29 | disposition home or self-care (01) | DRG 660 ==
LOC: ED 23:22 → 3N 06-22 03:02